=== PATIENT | female | born 1970 | race Caucasian/White ===

== ENCOUNTER 2016-10-17 22:51 | Inpatient (IN) | payer MEDICAID, OTHER ==
[2016-10-17] MEDS ORDERED: Sodium Chloride 0.9% 1,000 ML IV ONE (23:26)
--- NOTE | 2016-10-17 23:26 | C.PDOC ---
History Of Present Illness Patient presents with right upper quadrant pain which started around 8 pm. NO fever, chills, nausea or vomiting. Sharp, cramping pain. Tolerating PO. Time Seen by Provider: 10/17/16 23:26 Chief Complaint (Nursing): Abdominal Pain History Per: Patient History/Exam Limitations: no limitations Onset/Duration Of Symptoms: Hrs Current Symptoms Are (Timing): Still Present Context: Other Severity: Moderate Pain Scale Rating Of: 4 Location Of Pain/Discomfort: RUQ Radiation Of Pain To:: None Quality Of Discomfort: Sharp, Cramping, Stabbing Associated Symptoms: denies: Fever, Chills, Nausea, Vomiting Exacerbating Factors: None Alleviating Factors: None Last Bowel Movement: Today Recent travel outside of the [place]: No Additional History Per: Patient Abnormal Vaginal Bleeding: No Past Medical History Reviewed: Historical Data, Nursing Documentation, Vital Signs Vital Signs: Last Vital Signs Temp 98.4 F 10/17/16 23:03 Pulse 70 10/17/16 23:03 Resp 16 10/17/16 23:03 BP 108/66 10/17/16 23:03 Pulse Ox 100 10/18/16 02:02 - Medical History PMH: Hypercholesterolemia Family History: States: No Known Family Hx - Social History Hx Alcohol Use: No Hx Substance Use: No - Immunization History Hx Tetanus Toxoid Vaccination: No Hx Influenza Vaccination: No Hx Pneumococcal Vaccination: No Review Of Systems Constitutional: Negative for: Fever, Chills Eyes: Negative for: Redness ENT: Negative for: Throat Pain Cardiovascular: Negative for: Chest Pain Respiratory: Negative for: Shortness of Breath Gastrointestinal: Positive for: Abdominal Pain. Negative for: Nausea, Vomiting Genitourinary: Negative for: Dysuria Musculoskeletal: Negative for: Back Pain Skin: Negative for: Rash Neurological: Negative for: Weakness Psych: Negative for: Anxiety Physical Exam - Physical Exam Appears: Non-toxic, No Acute Distress Skin: Warm, Dry Head: Normacephalic Eye(s): bilateral: Normal Inspection Oral Mucosa: Moist Neck: Trachea Midline, Supple Chest: Symmetrical Cardiovascular: Rhythm Regular Respiratory: No Rales, No Rhonchi, No Wheezing Gastrointestinal/Abdominal: Soft, Tenderness (ruq), No Distention Back: No CVA Tenderness Extremity: No Tenderness Extremity: Bilateral: Atraumatic, Normal Color And Temperature, Normal ROM Pulses: Left Dorsalis Pedis: Normal, Right Dorsalis Pedis: Normal Neurological/Psych: Oriented x3, Normal Speech, Normal Cognition Gait: Steady ED Course And Treatment - Laboratory Results Result Diagrams: 10/17/16 23:31 10/17/16 23:31 O2 Sat by Pulse Oximetry: 100 Pulse Ox Interpretation: Normal Disposition Discussed With DrAnnie: Debi Dozier Comment: accepted the pt on his service and took over the care at 2 AM Doctor Will See Patient In The: Hospital Counseled Patient/Family Regarding: Studies Performed, Diagnosis - Disposition Disposition: HOSPITALIZED Disposition Time: 23:26 Condition: FAIR Forms: [employer] (Thai) - POA Present On Arrival: None - Clinical Impression Clinical Impression: Abdominal pain, Anemia Decision To Admit - Pt Status Changed To: Hospital Disposition Of: Inpatient - Admit Certification Admit to Inpatient:: After my assessment, the patient will require hospitalization for at least two midnights. This is because of the severity of symptoms shown, intensity of services needed, and/or the medical risk in this patient being treated as an outpatient. - InPatient: Physician Admission Certification:: After my assessment, the patient will require hospitalization for at least two midnights. This is because of the severity of symptoms shown, intensity of services needed, and/or the medical risk in this patient being treated as an outpatient. - . Bed Request Type: Regular Admitting Physician: Debi Dozier Patient Diagnosis: Abdominal pain, Anemia
[2016-10-17] MEDS ORDERED: Sodium Chloride 0.9% 1,000 ML ONE (23:33)
[2016-10-17 23:36] LABS: BASO # 0.1 K/uL (0.0-0.2); BASO % 0.4 % (0.0-2.0); EOS # 0.2 K/uL (0.0-0.7); EOS % 1.4 % (0.0-4.0); HEMATOCRIT 25.4 % (34.0-47.0); LYMPH # 2.2 K/uL (1.0-4.3); LYMPH % 16.5 % (20.0-40.0); MEAN CORPUSCULAR HEMOGLOBIN 19.2 pg (27.0-31.0); MEAN CORPUSCULAR HGB CONC 30.1 g/dL (33.0-37.0); MEAN PLATELET VOLUME 8.6 fL (7.2-11.7); MONO # 0.7 K/uL (0.0-0.8); MONO % 5.4 % (0.0-10.0); RED CELL DISTRIBUTION WIDTH 19.6 % (11.5-14.5); WHITE BLOOD COUNT 13.4 K/uL (4.8-10.8)
[2016-10-17 23:37] LABS: RBC URINE 2 /hpf (0-3); URINE BILIRUBIN NEGATIVE (NEGATIVE); URINE BLOOD NEGATIVE (NEGATIVE); URINE COLOR Yellow (YELLOW); URINE GLUCOSE (UA) NORMAL (Normal); URINE KETONE NEGATIVE (NEGATIVE); URINE LEUKOCYTE ESTERASE NEG Leu/uL (Negative); URINE PROTEIN NEGATIVE (NEGATIVE); URINE UROBILINOGEN NORMAL mg/dL (0.2-1.0); WBC URINE 2 /hpf (0-5)
[2016-10-17 23:44] LABS: CHLORIDE 100 mmol/L (98-107)
[2016-10-17 23:45] LABS: INR 1.1; POTASSIUM 3.9 mmol/L (3.6-5.2); SODIUM 135 mmol/L (132-148)
[2016-10-17 23:47] LABS: ALB/GLOB RATIO 1.1 (1.0-2.1); ALKALINE PHOSPHATASE 75 U/L (38-126); AST/SGOT 29 U/L (14-36); BILIRUBIN,TOTAL 0.3 mg/dL (0.2-1.3); BLOOD UREA NITROGEN 13 mg/dL (7-17); CARBON DIOXIDE 24 mmol/L (22-30); GFR AFRICAN-AMERICAN > 60; TOTAL PROTEIN 7.2 g/dL (6.3-8.3)
[2016-10-17 23:48] LABS: ALT/SGPT 24 U/L (9-52); CALCIUM 8.5 mg/dl (8.6-10.4); GLUCOSE,RANDOM 97 mg/dL (65-105)
[2016-10-18] MEDS ORDERED: Iodixanol 320 MG/ML 100 ML BOTTLE IV ONE (00:59)
[2016-10-18 01:12] LABS: MEAN CELL VOLUME 63.8 fL (81.0-99.0)
[2016-10-18] MEDS ORDERED: Sodium Chloride 0.9% 1,000 ML IV ONE (02:08)
--- NOTE | 2016-10-18 08:56 | CT ---
PROCEDURE: CT Abdomen and Pelvis with contrast HISTORY: ruq pain, elevated lipase COMPARISON: None. TECHNIQUE: Contrast dose: 100 mL Visipaque 320 Radiation dose: Total exam DLP = 576.19 mGy-cm. This CT exam was performed using one or more of the following dose reduction techniques: Automated exposure control, adjustment of the mA and/or kV according to patient size, and/or use of iterative reconstruction technique. FINDINGS: LOWER THORAX: Unremarkable. LIVER: Unremarkable. No gross lesion or ductal dilatation. GALLBLADDER AND BILE DUCTS: No calcified gallstones. Minimal mural thickening, nonspecific. Consider correlation with ultrasound examination if there is clinical suspicion of cholecystitis. No pericholecystic fluid appreciated. PANCREAS: Unremarkable. No gross lesion or ductal dilatation. SPLEEN: Unremarkable. ADRENALS: Unremarkable. No mass. KIDNEYS AND URETERS: Unremarkable. No hydronephrosis. No solid mass. VASCULATURE: Unremarkable. No aortic aneurysm. BOWEL: Unremarkable. No obstruction. No gross mural thickening. APPENDIX: Normal appendix. PERITONEUM: Unremarkable. No free fluid. No free air. LYMPH NODES: Unremarkable. No enlarged lymph nodes. BLADDER: Unremarkable. REPRODUCTIVE: 2.0 cm mildly deformed peripherally enhancing right ovarian cyst consistent with rupture or involuting right ovarian cyst. No other adnexal masses. Unremarkable uterus. BONES: No acute fracture. OTHER FINDINGS: None. IMPRESSION: Probable ruptured or involuting right ovarian cyst, 2.0 cm. Mild thickening of gallbladder wall, nonspecific. No calcified gallstones focal gallstones were demonstrated on abdominal ultrasound examination of 09/30/2015. If there is clinical suspicion of cholecystitis consider further evaluation with ultrasound examination of the abdomen. Preliminary interpretation of this examination was reported by [employer] at 1:53 a.m. on 10/18/2016. There is concurrence of this report with the preliminary interpretation.
--- NOTE | 2016-10-18 09:21 | CP.PCM.PN ---
Subjective - Date & Time of Evaluation Date of Evaluation: 10/18/16 Time of Evaluation: 07:20 - Subjective Subjective: Medicine note- Dr. Dozier's service Patient was seen and examined at bedside. Patient reports that when she first came in, she had a lot of abdominal pain, however she has none at the moment. She denies any nausea, vomiting, fevers, chills. Last BM was yesterday. She denies any medical history and says she does not smoke, drink, or use illicit drugs. No events overnight, per nursing. Objective - Vital Signs/Intake and Output Vital Signs (last 24 hours): Temp Pulse Resp BP Pulse Ox 98.1 F 63 20 99/65 L 100 10/18/16 08:34 10/18/16 08:34 10/18/16 08:34 10/18/16 08:34 10/18/16 08:34 Intake and Output: 10/18/16 10/18/16 06:59 18:59 Intake Total 300 Balance 300 - Medications Medications: Current Medications Lactated Ringer's (Lactated Ringer's) 1,000 mls @ 250 mls/hr IV .Q4H CONI Pneumococcal Polyvalent Vaccine (Pneumovax 23 Vaccine) 0.5 ml IM .ONCE ONE Stop: 10/20/16 10:01 - Labs Labs: PT 11.8 SECONDS (9.7-12.2) 10/17/16 23:31 INR 1.1 10/17/16 23:31 APTT 27 SECONDS (21-34) 10/17/16 23:31 - Constitutional Appears: Non-toxic, No Acute Distress - Head Exam Head Exam: ATRAUMATIC, NORMAL INSPECTION, NORMOCEPHALIC - Eye Exam Pupil Exam: NORMAL ACCOMODATION - ENT Exam ENT Exam: Mucous Membranes Moist - Respiratory Exam Respiratory Exam: Clear to Ausculation Bilateral, NORMAL BREATHING PATTERN. absent: Prolonged Expiratory Phase, Rales, Rhonchi, Wheezes - Cardiovascular Exam Cardiovascular Exam: REGULAR RHYTHM, +S1, +S2 - GI/Abdominal Exam GI & Abdominal Exam: Soft, Normal Bowel Sounds. absent: Tenderness, Diminished Bowel Sounds, Hernia, Hypoactive Bowel Sounds - Extremities Exam Extremities Exam: Normal Capillary Refill - Neurological Exam Neurological Exam: Alert, Awake, Oriented x3 - Psychiatric Exam Psychiatric exam: Normal Affect, Normal Mood - Skin Skin Exam: Dry, Intact, Normal Color, Warm Assessment and Plan (1) Acute pancreatitis Assessment & Plan: Lipase on admission-6764 WBC 6.6 Consult GI- Dr. Montalvo Consult Gen Surgery- Dr. Arvizu CT Scan w IV contrast- 10/18/16- Probable ruptured or involuting right ovarian cyst, 2.0 cm. Mild thickening of gall bladder wall, nonspecific. No calcified gallstones focal gallstones were demonstrated on abdominal ultrasound examination of 09/30/15. (Please see full report) Lactated Ringers @ 250cc/hr Abdomen Ultrasound- Cholelithiasis. Mild gallbladder wall thickening/ pericholecystic edema. Echogenic liver seen in setting of hepatic parnechymal disease or fatty infiltration. 9mm nonspecific focus within the right hepatic lobe. Advance diet as tolerated- currently on clear liquid diet Status: Acute (2) Anemia Assessment & Plan: Hgb 7.7 on admission Hgb 8.6 today Consult Hemeonc- Dr. Posadas f/u iron studies Status: Acute (3) Prophylactic measure Assessment & Plan: Protonix 40mg IVP Daily SCDs Status: Acute
[2016-10-18] MEDS: Lactated Ringer's 1,000 ML IV SCH ×5 (09:30→22:00)
--- NOTE | 2016-10-18 09:44 | CP.PCM.CON ---
<Reji Kim - Last Filed: 10/18/16 09:46> History of Present Illness - History of Present Illness History of Present Illness: PGY5 GI Fellow Consult Note Patient is a 45yo female with PMHx significant for pancreatitis who presented to the ED with one day of abdominal pain. The patient states that last night at 8pm, following dinner, she developed RUQ abdominal pain radiating ot the right flank and epigastrium. Pain was cramping in nature and as it continued to increase in severity, she came to the ED for evaluation. Symptoms have since resolved. Admits pain was similar to episode she had one year prior when she was diagnosed with acute pancreatitis, unknown etiology at that time. She denies any EtOH abuse/use and has no known history of gallstones or dyslipidemia /hypertriglyceridemia. She is not taking any new medications and denies any OTC medication use recently. Initial work up in the ED revealed a significantly elevated Lipase at 6700 and microcytic anemia. Denies fever, chills, nausea, vomiting, weight loss, dysphagia, hematochezia, melena. PMHx: Pancreatitis PSHx: Denies FHx: Discussed with patient and denies any significant family history Social: Denies tobacco, EtOH or illicit drug use Endo: No prior endoscopic evaluations 12 system ROS performed and negative except where stated above. Past Patient History - Infectious Disease Hx of Infectious Diseases: None - Past Medical History & Family History Past Medical History?: No - Past Social History Smoking Status: Never Smoked - CARDIAC Hx Hypercholesterolemia: Yes - MUSCULOSKELETAL/RHEUMATOLOGICAL Hx Falls: No - GASTROINTESTINAL Hx Gastritis: Yes - PSYCHIATRIC Hx Substance Use: No - SURGICAL HISTORY Hx Surgeries: No - ANESTHESIA Hx Anesthesia: No Has any member of the family had a problem w/ anesthesia?: No Meds Allergies/Adverse Reactions: Allergies Allergy/AdvReac Type Severity Reaction Status Date / Time Penicillins Allergy Severe hives Verified 10/17/16 23:07 - Medications Medications: Current Medications Lactated Ringer's (Lactated Ringer's) 1,000 mls @ 250 mls/hr IV .Q4H [facility]I Pneumococcal Polyvalent Vaccine (Pneumovax 23 Vaccine) 0.5 ml IM .ONCE ONE Stop: 10/20/16 10:01 Physical Exam - Constitutional Appears: Non-toxic, No Acute Distress - Eye Exam Eye Exam: EOMI, PERRL - ENT Exam ENT Exam: Mucous Membranes Moist - Respiratory Exam Respiratory Exam: Clear to Auscultation Bilateral. absent: Rales, Rhonchi, Wheezes - Cardiovascular Exam Cardiovascular Exam: RRR, +S1, +S2 - GI/Abdominal Exam GI & Abdominal Exam: Normal Bowel Sounds, Soft. absent: Distended, Firm, Guarding, Organomegaly, Rigid, Tenderness - Extremities Exam Extremities exam: Positive for: normal inspection. Negative for: pedal edema - Neurological Exam Neurological exam: Alert, Oriented x3 - Psychiatric Exam Psychiatric exam: Normal Affect, Normal Mood - Skin Skin Exam: Dry, Warm Results - Vital Signs Recent Vital Signs: Last Vital Signs Temp 98.1 F 10/18/16 08:34 Pulse 63 10/18/16 08:34 Resp 20 10/18/16 08:34 BP 99/65 L 10/18/16 08:34 Pulse Ox 100 10/18/16 08:34 - Labs Result Diagrams: 10/17/16 23:31 10/17/16 23:31 Assessment & Plan - Assessment and Plan (Free Text) Assessment: Patient is a 45yo female with PMHx significant for pancreatitis who presented to the ED with one day of abdominal pain -Acute pancreatitis (second episode), unclear etiology -Microcytic anemia Plan: -Recommend changing IVF to LR@250cc/hr for 24H -Advance diet to liquids, continue to advance diet as tolerated -Check abdominal U/S, r/o cholelithiasis -CT A/P reviewed -Check lipid panel, r/o hypertriglyceridemia -Iron studies pending, no overt blood loss per pt -Will benefit from outpatient w/u including EGD/Colonoscopy/EUS -May benefit from MRCP to r/o pancreas divisum -Will follow - Date & Time Date: 10/18/16 Time: 08:00 <Chandu Hollis - Last Filed: 10/18/16 10:34> Meds - Medications Medications: Current Medications Enoxaparin Sodium (Lovenox) 40 mg SC DAILY [facility] Lactated Ringer's (Lactated Ringer's) 1,000 mls @ 250 mls/hr IV .Q4H [facility] Sodium Chloride (Sodium Chloride 0.9%) 1,000 mls @ 100 mls/hr IV .Q10H [facility] Pantoprazole Sodium (Protonix Inj) 40 mg IVP [facility]ILY [facility] Pneumococcal Polyvalent Vaccine (Pneumovax 23 Vaccine) 0.5 ml IM .ONCE ONE Stop: 10/20/16 10:01 Results - Vital Signs Recent Vital Signs: Last Vital Signs Temp 98.1 F 10/18/16 08:34 Pulse 63 10/18/16 08:34 Resp 20 10/18/16 08:34 BP 99/65 L 10/18/16 08:34 Pulse Ox 100 10/18/16 08:34 - Labs Result Diagrams: 10/17/16 23:31 10/17/16 23:31 Attending/Attestation - Attestation I have personally seen and examined this patient.: Yes I have fully participated in the care of the patient.: Yes I have reviewed all pertinent clinical information: Yes Notes (Text): 10/18/16 10:31 45 year old female with h/o prior pancreatitis about 1 year ago now admitted with recurrent acute pancreatitis, uncertain etiology, also with microcytic anemia. 1. Acute pancreatitis 2. Microcytic anemia Plan: -CT reviewed, no local complications, no organ failure on labs -recommend aggressive IV hydration as above -eval for etiology with abdominal US, high trig, AIP -eval for anemia with iron studies -recommend outpatient egd/colon as well -consider outpatient EUS and/or MRCP as well for eval of recurrent idiopathic acute pancreatitis
[2016-10-18] MEDS ORDERED: Sodium Chloride 0.9% 1,000 ML IV SCH (10:15)
--- NOTE | 2016-10-18 11:11 | US ---
HISTORY: r/o gallstones COMPARISON: CT abdomen and pelvis with IV contrast performed 10/18/16, limited abdominal ultrasound performed 09/30/15. TECHNIQUE: Sonographic evaluation of the abdomen. FINDINGS: LIVER: Measures 16.0 cm in sagittal dimension. Echogenic liver may be seen in setting of hepatic parenchymal disease or fatty infiltration. 9 mm nonspecific echogenic focus within the right hepatic lobe. No focal hepatic mass identified. The main portal vein appears patent with normal directional flow. No intrahepatic bile duct dilatation. GALLBLADDER: Cholelithiasis. Bladder wall thickening/ edema measuring up to 4 mm. Negative sonographic Pedroza's sign as assessed by the wood last maker. COMMON BILE DUCT: Measures 5 mm. PANCREAS: Not well visualized. RIGHT KIDNEY: Measures 10.9 x 4.4 x 5.0cm. No obstructing calculus or hydronephrosis identified. LEFT KIDNEY: Measures 11.9 x 5.8 x 5.9cm. No obstructing calculus or hydronephrosis identified. SPLEEN: Not visualized. AORTA: Limited views appear unremarkable. IVC: Limited views appear unremarkable. OTHER FINDINGS: None. IMPRESSION: Cholelithiasis. Mild gallbladder wall thickening/pericholecystic edema. Negative sonographic Pedroza's sign as assessed by the wood last maker. Correlate clinically. Echogenic liver may be seen in setting of hepatic parenchymal disease or fatty infiltration. 9 mm nonspecific focus within the right hepatic lobe.
[2016-10-18 11:51] LABS: BASO % 0.4 % (0.0-2.0); EOS # 0.1 K/uL (0.0-0.7); EOS % 1.5 % (0.0-4.0); HEMATOCRIT 28.5 % (34.0-47.0); LYMPH # 2.2 K/uL (1.0-4.3); LYMPH % 33.4 % (20.0-40.0); MEAN CELL VOLUME 63.9 fL (81.0-99.0); MEAN CORPUSCULAR HEMOGLOBIN 19.3 pg (27.0-31.0); MEAN CORPUSCULAR HGB CONC 30.1 g/dL (33.0-37.0); MEAN PLATELET VOLUME 8.3 fL (7.2-11.7); MONO # 0.3 K/uL (0.0-0.8); MONO % 5.3 % (0.0-10.0); RED CELL DISTRIBUTION WIDTH 19.4 % (11.5-14.5)
[2016-10-18 11:54] LABS: CHLORIDE 106 mmol/L (98-107)
[2016-10-18 11:55] LABS: POTASSIUM 3.5 mmol/L (3.6-5.2); SODIUM 138 mmol/L (132-148)
[2016-10-18 11:56] LABS: WHITE BLOOD COUNT 6.6 K/uL (4.8-10.8)
[2016-10-18 11:57] LABS: CARBON DIOXIDE 22 mmol/L (22-30); CHOLESTEROL 171 mg/dL (0-199); GFR AFRICAN-AMERICAN > 60
[2016-10-18 11:58] LABS: ALB/GLOB RATIO 1.1 (1.0-2.1); ALKALINE PHOSPHATASE 85 U/L (38-126); ALT/SGPT 26 U/L (9-52); AST/SGOT 25 U/L (14-36); BILIRUBIN,TOTAL 0.7 mg/dL (0.2-1.3); BLOOD UREA NITROGEN 5 mg/dL (7-17); CALCIUM 8.9 mg/dl (8.6-10.4); GLUCOSE,RANDOM 90 mg/dL (65-105); TOTAL PROTEIN 7.6 g/dL (6.3-8.3)
--- NOTE | 2016-10-18 13:30 | CP.PCM.HP ---
Past Patient History - Infectious Disease Hx of Infectious Diseases: None - Past Medical History & Family History Past Medical History?: No - Past Social History Smoking Status: Never Smoked - CARDIAC Hx Hypercholesterolemia: Yes - MUSCULOSKELETAL/RHEUMATOLOGICAL Hx Falls: No - GASTROINTESTINAL Hx Gastritis: Yes - PSYCHIATRIC Hx Substance Use: No - SURGICAL HISTORY Hx Surgeries: No - ANESTHESIA Hx Anesthesia: No Has any member of the family had a problem w/ anesthesia?: No Meds Allergies/Adverse Reactions: Allergies Allergy/AdvReac Type Severity Reaction Status Date / Time Penicillins Allergy Severe hives Verified 10/17/16 23:07 Physical Exam - Constitutional Appears: Well - Head Exam Head Exam: ATRAUMATIC, NORMAL INSPECTION, NORMOCEPHALIC - Eye Exam Eye Exam: EOMI, Normal appearance, PERRL Pupil Exam: NORMAL ACCOMODATION, PERRL - ENT Exam ENT Exam: Mucous Membranes Moist, Normal Exam - Neck Exam Neck exam: Positive for: Normal Inspection - Respiratory Exam Respiratory Exam: Decreased Breath Sounds - Cardiovascular Exam Cardiovascular Exam: REGULAR RHYTHM, +S1, +S2 - GI/Abdominal Exam GI & Abdominal Exam: Diminished Bowel Sounds, Soft - Rectal Exam Rectal Exam: Deferred Results - Vital Signs Recent Vital Signs: Last Vital Signs Temp 98.1 F 10/18/16 08:34 Pulse 63 10/18/16 08:34 Resp 20 10/18/16 08:34 BP 99/65 L 10/18/16 08:34 Pulse Ox 100 10/18/16 08:34 - Labs Result Diagrams: 10/18/16 11:41 10/18/16 11:41 Labs: Laboratory Results - last 24 hr 10/18/16 10/18/16 11:41 11:41 WBC 6.6 D RBC 4.46 Hgb 8.6 L Hct 28.5 L MCV 63.9 L MCH 19.3 L MCHC 30.1 L RDW 19.4 H Plt Count 321 MPV 8.3 Neut % (Auto) 59.4 Lymph % (Auto) 33.4 [place] % (Auto) 5.3 Eos % (Auto) 1.5 Baso % (Auto) 0.4 Neut # 3.9 Lymph # 2.2 [place] # 0.3 Eos # 0.1 Baso # 0.0 Sodium 138 Potassium 3.5 L Chloride 106 Carbon Dioxide 22 Anion Gap 13 BUN 5 L Creatinine 0.4 L Est GFR ( Amer) > 60 Est GFR (Non-Af Amer) > 60 Random Glucose 90 Calcium 8.9 Total Bilirubin 0.7 AST 25 ALT 26 Alkaline Phosphatase 85 Total Protein 7.6 Albumin 4.0 Globulin 3.6 Albumin/Globulin Ratio 1.1 Triglycerides 96 Cholesterol 171 LDL Cholesterol Direct 85 HDL Cholesterol 68
--- NOTE | 2016-10-18 13:46 | CP.PCM.CON ---
<Clyde Kuhn - Last Filed: 10/18/16 14:17> History of Present Illness - History of Present Illness History of Present Illness: General Surgery- Dr. Arvizu 45F pmhx for pancreatitis first episode one year ago. Pt presented to the ED with pain in the RUQ started one day ago and got progressively worse. During this visit, pt was diagnosed with pancreatitits. During encounter, currently denies any pain. Ultrasound shows gallbladder wall thickening and cholelithiasis. Pt denies current F/C N/V/D BRBPR PMH: Pancreatitis (one year ago) PSH: none SocialHx: Denies tobacco, etoh, illicit drug use Review of Systems - Review of Systems All systems: reviewed and no additional remarkable complaints except Past Patient History - Infectious Disease Hx of Infectious Diseases: None - Past Medical History & Family History Past Medical History?: No - Past Social History Smoking Status: Never Smoked - CARDIAC Hx Hypercholesterolemia: Yes - MUSCULOSKELETAL/RHEUMATOLOGICAL Hx Falls: No - GASTROINTESTINAL Hx Gastritis: Yes - PSYCHIATRIC Hx Substance Use: No - SURGICAL HISTORY Hx Surgeries: No - ANESTHESIA Hx Anesthesia: No Has any member of the family had a problem w/ anesthesia?: No Meds Allergies/Adverse Reactions: Allergies Allergy/AdvReac Type Severity Reaction Status Date / Time Penicillins Allergy Severe hives Verified 10/17/16 23:07 - Medications Medications: Current Medications Enoxaparin Sodium (Lovenox) 40 mg SC DAILY [facility] Lactated Ringer's (Lactated Ringer's) 1,000 mls @ 250 mls/hr IV .Q4H [facility] Last Admin: 10/18/16 13:22 Dose: 250 mls/hr Pantoprazole Sodium (Protonix Inj) 40 mg IVP DAILY [facility] Pneumococcal Polyvalent Vaccine (Pneumovax 23 Vaccine) 0.5 ml IM .ONCE ONE Stop: 10/20/16 10:01 Physical Exam - Constitutional Appears: Non-toxic, No Acute Distress - Head Exam Head Exam: ATRAUMATIC - ENT Exam ENT Exam: Mucous Membranes Moist - Respiratory Exam Respiratory Exam: NORMAL BREATHING PATTERN. absent: Accessory Muscle Use, Rhonchi, Wheezes - Cardiovascular Exam Cardiovascular Exam: +S1, +S2 - GI/Abdominal Exam GI & Abdominal Exam: Soft. absent: Bruit, Distended, Mass, Rigid, Tenderness - Neurological Exam Neurological exam: Alert, Oriented x3 - Psychiatric Exam Psychiatric exam: Normal Affect - Skin Skin Exam: Normal Color, Warm Results - Vital Signs Recent Vital Signs: Last Vital Signs Temp 98.1 F 10/18/16 08:34 Pulse 63 10/18/16 08:34 Resp 20 10/18/16 08:34 BP 99/65 L 10/18/16 08:34 Pulse Ox 100 10/18/16 08:34 - Labs Result Diagrams: 10/18/16 11:41 10/18/16 11:41 Labs: Laboratory Results - last 24 hr 10/18/16 10/18/16 11:41 11:41 WBC 6.6 D RBC 4.46 Hgb 8.6 L Hct 28.5 L MCV 63.9 L MCH 19.3 L MCHC 30.1 L RDW 19.4 H Plt Count 321 MPV 8.3 Neut % (Auto) 59.4 Lymph % (Auto) 33.4 Love % (Auto) 5.3 Eos % (Auto) 1.5 Baso % (Auto) 0.4 Neut # 3.9 Lymph # 2.2 Love # 0.3 Eos # 0.1 Baso # 0.0 Sodium 138 Potassium 3.5 L Chloride 106 Carbon Dioxide 22 Anion Gap 13 BUN 5 L Creatinine 0.4 L Est GFR ( Amer) > 60 Est GFR (Non-Af Amer) > 60 Random Glucose 90 Calcium 8.9 Total Bilirubin 0.7 AST 25 ALT 26 Alkaline Phosphatase 85 Total Protein 7.6 Albumin 4.0 Globulin 3.6 Albumin/Globulin Ratio 1.1 Triglycerides 96 Cholesterol 171 LDL Cholesterol Direct 85 HDL Cholesterol 68 Assessment & Plan - Assessment and Plan (Free Text) Assessment: 45F w/ Gallstone Pancreatitis Plan: - will plan for surgical intervention during this visit or as follow up. - c/w medical management - pain control - IVF - further recs per Dr. Nolberto Kuhn PGY1 <Binu Arvizu - Last Filed: 10/23/16 16:53> Results - Vital Signs Recent Vital Signs: Last Vital Signs Temp 97.2 F L 10/20/16 07:00 Pulse 62 10/20/16 07:00 Resp 20 10/20/16 07:00 BP 110/69 10/20/16 07:00 Pulse Ox 98 10/20/16 07:00 - Labs Result Diagrams: 10/19/16 15:03 10/19/16 15:03 Labs: Laboratory Results - last 24 hr 10/18/16 19:59 IgG, Serum (MS) 14.1 Attending/Attestation - Attestation I have personally seen and examined this patient.: Yes I have fully participated in the care of the patient.: Yes I have reviewed all pertinent clinical information: Yes Notes (Text): 10/23/16 16:51 Pt was seen and examined at bedside on 10/18/16 Agree with above note and assessment Pt with GS pancreatitis with Anemia Repeat Lipase/amylase and LFTS IV antibiotic NPO,IVF Medical clearance. Plan d.w pt in detail Risk and benefit explained in detail.
--- NOTE | 2016-10-18 14:15 | CP.PCM.PN ---
Objective - Vital Signs/Intake and Output Vital Signs (last 24 hours): Temp Pulse Resp BP Pulse Ox 98.1 F 63 20 99/65 L 100 10/18/16 08:34 10/18/16 08:34 10/18/16 08:34 10/18/16 08:34 10/18/16 08:34 Intake and Output: 10/18/16 10/18/16 06:59 18:59 Intake Total 300 Balance 300 - Medications Medications: Current Medications Enoxaparin Sodium (Lovenox) 40 mg SC DAILY [facility] Lactated Ringer's (Lactated Ringer's) 1,000 mls @ 250 mls/hr IV .Q4H CONI Last Admin: 10/18/16 13:22 Dose: 250 mls/hr Pantoprazole Sodium (Protonix Inj) 40 mg IVP DAILY [facility] Pneumococcal Polyvalent Vaccine (Pneumovax 23 Vaccine) 0.5 ml IM .ONCE ONE Stop: 10/20/16 10:01 - Labs Labs: 10/18/16 11:41 10/18/16 11:41 PT 11.8 SECONDS (9.7-12.2) 10/17/16 23:31 INR 1.1 10/17/16 23:31 APTT 27 SECONDS (21-34) 10/17/16 23:31 Assessment and Plan (1) Acute pancreatitis Status: Acute (2) Anemia Status: Acute (3) Prophylactic measure Status: Acute
[2016-10-18] MEDS ORDERED: Potassium Chloride 20 mEq ER Tab PO ONE ×2 (14:24→19:45)
--- NOTE | 2016-10-18 15:23 | CP.PCM.HP ---
<Valentin Gonzalez - Last Filed: 10/18/16 15:20> History of Present Illness - History of Present Illness History of Present Illness: cc: "abdominal pain" HPI: Patient is a 45 year old female with PMHx of hyperlipidemia, hx of pancreatitis, anemia presenting to the ED complaining of abdominal pain that started yesterday morning, localized to the right upper quadrant, described as a sharp pain. She said the pain worsened after eating, but not during. She says she has had this once before, per records she was at [facility] for pancreatitis in September of 2015. She denied fevers, chills, chest pain, palpitations, nausea, vomiting. Patient reports that in the past, she has been told that she was anemic, but she does not know why. She reports she has had tranfusions in the past. She denies any heavy menstrual periods, no rectal bleeding, hematuria. Denies any previous colonoscopy. PMHx: As stated above PSHx: None Allergies: PCN Fam hx: Denies cardiac, stroke, malignancy history Social hx: Denies smoking, alcohol, drug history. Present on Admission - Present on Admission Any Indicators Present on Admission: No Review of Systems - Constitutional Constitutional: absent: Chills, Weight Loss, Weakness - EENT Eyes: absent: Blurred Vision, Change in Vision - Cardiovascular Cardiovascular: absent: Chest Pain, Irregular Heart Rhythm, Leg Edema, Pedal Edema - Respiratory Respiratory: absent: Cough, Dyspnea, Dyspnea on Exertion, Wheezing - Gastrointestinal Gastrointestinal: Abdominal Pain. absent: Constipation, Diarrhea, Nausea, Vomiting - Menstruation Menstruation: absent: Amenorrhea, Abnormal Vaginal Bleeding - Musculoskeletal Musculoskeletal: absent: Back Pain, Myalgias, Numbness - Integumentary Integumentary: absent: Skin Ulcer, Sores, Wounds - Neurological Neurological: absent: Abnormal Movements, Tremor, Weakness - Psychiatric Psychiatric: absent: Anxiety, Panic Attacks, Suicidal Ideation - Endocrine Endocrine: absent: Fatigue, Palpitations Past Patient History - Infectious Disease Hx of Infectious Diseases: None - Past Medical History & Family History Past Medical History?: No - Past Social History Smoking Status: Never Smoked Chewing Tobacco Use: No Cigar Use: No Alcohol: None Drugs: Denies - CARDIAC Hx Hypercholesterolemia: Yes - MUSCULOSKELETAL/RHEUMATOLOGICAL Hx Falls: No - GASTROINTESTINAL Hx Gastritis: Yes - PSYCHIATRIC Hx Substance Use: No - SURGICAL HISTORY Hx Surgeries: No - ANESTHESIA Hx Anesthesia: No Has any member of the family had a problem w/ anesthesia?: No Meds Allergies/Adverse Reactions: Allergies Allergy/AdvReac Type Severity Reaction Status Date / Time Penicillins Allergy Severe hives Verified 10/17/16 23:07 Physical Exam - Constitutional Appears: Non-toxic, No Acute Distress - Head Exam Head Exam: ATRAUMATIC, NORMAL INSPECTION, NORMOCEPHALIC - Eye Exam Pupil Exam: NORMAL ACCOMODATION, PERRL - ENT Exam ENT Exam: Mucous Membranes Moist - Neck Exam Neck exam: Positive for: Normal Inspection - Respiratory Exam Respiratory Exam: Clear to Auscultation Bilateral - Cardiovascular Exam Cardiovascular Exam: REGULAR RHYTHM, +S1, +S2 - GI/Abdominal Exam GI & Abdominal Exam: Normal Bowel Sounds, Soft, Tenderness (RUQ). absent: Firm , Guarding, Rebound, Rigid - Extremities Exam Extremities exam: Positive for: normal capillary refill - Neurological Exam Neurological exam: Alert, CN II-XII Intact, Oriented x3 - Psychiatric Exam Psychiatric exam: Normal Affect, Normal Mood - Skin Skin Exam: Dry, Intact, Normal Color, Warm Results - Vital Signs Recent Vital Signs: Last Vital Signs Temp 98.1 F 10/18/16 08:34 Pulse 63 10/18/16 08:34 Resp 20 10/18/16 08:34 BP 99/65 L 10/18/16 08:34 Pulse Ox 100 10/18/16 08:34 - Labs Result Diagrams: 10/18/16 11:41 10/18/16 11:41 Labs: Laboratory Results - last 24 hr 10/18/16 10/18/16 11:41 11:41 WBC 6.6 D RBC 4.46 Hgb 8.6 L Hct 28.5 L MCV 63.9 L MCH 19.3 L MCHC 30.1 L RDW 19.4 H Plt Count 321 MPV 8.3 Neut % (Auto) 59.4 Lymph % (Auto) 33.4 Callahan % (Auto) 5.3 Eos % (Auto) 1.5 Baso % (Auto) 0.4 Neut # 3.9 Lymph # 2.2 Callahan # 0.3 Eos # 0.1 Baso # 0.0 Sodium 138 Potassium 3.5 L Chloride 106 Carbon Dioxide 22 Anion Gap 13 BUN 5 L Creatinine 0.4 L Est GFR ( Amer) > 60 Est GFR (Non-Af Amer) > 60 Random Glucose 90 Calcium 8.9 Total Bilirubin 0.7 AST 25 ALT 26 Alkaline Phosphatase 85 Total Protein 7.6 Albumin 4.0 Globulin 3.6 Albumin/Globulin Ratio 1.1 Triglycerides 96 Cholesterol 171 LDL Cholesterol Direct 85 HDL Cholesterol 68 Assessment & Plan (1) Acute pancreatitis Status: Acute (2) Anemia Status: Acute (3) Prophylactic measure Status: Acute - Assessment and Plan (Free Text) Assessment: (1) Acute pancreatitis Assessment & Plan: Lipase on admission-[id number] WBC 6.6 Consult GI- Dr. Montalvo Consult Gen Surgery- Dr. Arvizu- Per Dr. Arvizu, if patient's lipase continues to trend down and patient remains stable, patient may be taken for cholecystectomy on Tuesday10/20/16 CT Scan w IV contrast- 10/18/16- Probable ruptured or involuting right ovarian cyst, 2.0 cm. Mild thickening of gall bladder wall, nonspecific. No calcified gallstones focal gallstones were demonstrated on abdominal ultrasound examination of 09/30/15. (Please see full report) Abdomen Ultrasound- 10/18/16- Cholelithiasis. Mild gallbladder wall thickening/ pericholecystic edema. Echogenic liver seen in setting of hepatic parnechymal disease or fatty infiltration. 9mm nonspecific focus within the right hepatic lobe. Had trial of clear liquid diet for Lunch, patient complained of abdominal pain. Made NPO except ice chips Lactated Ringers @ 250cc/hr Morphine 1mg IVP Q4h PRN for pain Status: Acute (2) Anemia Assessment & Plan: Hgb 7.7 on admission Hgb 8.6 today Consult Hemeonc- Dr. Posadas f/u iron studies Status: Acute (3) Prophylactic measure Assessment & Plan: Protonix 40mg IVP Daily SCDs Status: Acute <Kendell Braga - Last Filed: 11/22/16 15:23> Results - Vital Signs Recent Vital Signs: Last Vital Signs Temp 97.2 F L 10/20/16 07:00 Pulse 62 10/20/16 07:00 Resp 20 10/20/16 07:00 BP 110/69 10/20/16 07:00 Pulse Ox 98 10/20/16 07:00 - Labs Result Diagrams: 10/19/16 15:03 08/15/17 15:03 Attending/Attestation - Attestation I have personally seen and examined this patient.: Yes I have fully participated in the care of the patient.: Yes I have reviewed all pertinent clinical information: Yes Notes (Text): (1) Acute pancreatitis (2) Anemia
[2016-10-18] MEDS: Ferric Sodium Gluconat Complex 62.5 mg/5 ml Vial IVPB SCH (21:10)
[2016-10-19 01:55] VITALS: RESP 20
[2016-10-19] MEDS: Lactated Ringer's 1,000 ML IV SCH ×6 (03:00→23:50)
--- NOTE | 2016-10-19 07:37 | CP.PCM.PN ---
<SariflyReji taylor - Last Filed: 10/19/16 08:32> Subjective - Date & Time of Evaluation Date of Evaluation: 10/19/16 Time of Evaluation: 07:10 - Subjective Subjective: PGY5 GI Fellow Progress Note Patient seen and examined bedside this morning. The patient denies any complaints at this time. States that she is feeling much better and has no abdominal pain. Tolerating liquid diet without issue. 12 system ROS performed and negative except where stated. Objective - Vital Signs/Intake and Output Vital Signs (last 24 hours): Temp Pulse Resp BP Pulse Ox 97.6 F 64 20 110/58 L 100 10/18/16 23:45 10/18/16 23:45 10/18/16 23:45 10/18/16 23:45 10/18/16 23:45 Intake and Output: 10/19/16 10/19/16 06:59 18:59 Intake Total 4000 Balance 4000 - Medications Medications: Current Medications Enoxaparin Sodium (Lovenox) 40 mg SC DAILY [facility] Ferric Sodium Gluconate Complex (Ferrlecit) 125 mg IVPB DAILY [facility] Stop: 10/26/16 17:46 Last Admin: 10/18/16 21:10 Dose: 125 mg Lactated Ringer's (Lactated Ringer's) 1,000 mls @ 250 mls/hr IV .Q4H [facility] Last Admin: 10/19/16 03:00 Dose: 250 mls/hr Morphine Sulfate (Morphine) 1 mg IVP Q4 PRN PRN Reason: Pain, severe (8-10) Pantoprazole Sodium (Protonix Inj) 40 mg IVP DAILY [facility] Pneumococcal Polyvalent Vaccine (Pneumovax 23 Vaccine) 0.5 ml IM .ONCE ONE Stop: 10/20/16 10:01 - Labs Labs: 10/18/16 11:41 10/18/16 11:41 PT 11.8 SECONDS (9.7-12.2) 10/17/16 23:31 INR 1.1 10/17/16 23:31 APTT 27 SECONDS (21-34) 10/17/16 23:31 - Constitutional Appears: Non-toxic, No Acute Distress - Eye Exam Eye Exam: EOMI, PERRL - ENT Exam ENT Exam: Mucous Membranes Moist - Respiratory Exam Respiratory Exam: Clear to Ausculation Bilateral. absent: Rales, Rhonchi, Wheezes - Cardiovascular Exam Cardiovascular Exam: RRR, +S1, +S2 - GI/Abdominal Exam GI & Abdominal Exam: Soft, Normal Bowel Sounds. absent: Distended, Firm, Guarding, Rigid, Tenderness, Organomegaly - Extremities Exam Extremities Exam: Normal Inspection. absent: Pedal Edema - Neurological Exam Neurological Exam: Alert, Awake, Oriented x3 - Psychiatric Exam Psychiatric exam: Normal Affect, Normal Mood - Skin Skin Exam: Dry, Warm Assessment and Plan - Assessment and Plan (Free Text) Assessment: Patient is a 45yo female with PMHx significant for pancreatitis who presented to the ED with one day of abdominal pain -Acute pancreatitis (second episode), believe gallstone pancreatitis to be etiology -Microcytic anemia Plan: -U/S revealing cholelithiasis, mild wall thickening/pericholecystic edema -Plan for laparoscopic cholecystectomy tomorrow with surgical service -OK to advance diet as tolerated today; NPO past MN for surgery -OK to decrease IVF to LR@150 -Lipid panel unremarkable -IgG4 subclass sent -Iron studies ordered, still with no overt blood loss since admission; HGB stable -Recommend outpatient EGD/Colonoscopy <Roney Montalvo - Last Filed: 10/19/16 08:46> Objective - Vital Signs/Intake and Output Vital Signs (last 24 hours): Temp Pulse Resp BP Pulse Ox 98.5 F 70 20 110/70 99 10/19/16 07:00 10/19/16 07:00 10/19/16 07:00 10/19/16 07:00 10/19/16 07:00 Intake and Output: 10/19/16 10/19/16 06:59 18:59 Intake Total 4000 Balance 4000 - Medications Medications: Current Medications Enoxaparin Sodium (Lovenox) 40 mg SC DAILY [facility] Ferric Sodium Gluconate Complex (Ferrlecit) 125 mg IVPB DAILY [facility] Stop: 10/26/16 17:46 Last Admin: 10/18/16 21:10 Dose: 125 mg Lactated Ringer's (Lactated Ringer's) 1,000 mls @ 250 mls/hr IV .Q4H [facility] Last Admin: 10/19/16 03:00 Dose: 250 mls/hr Morphine Sulfate (Morphine) 1 mg IVP Q4 PRN PRN Reason: Pain, severe (8-10) Pantoprazole Sodium (Protonix Inj) 40 mg IVP DAILY [facility] Pneumococcal Polyvalent Vaccine (Pneumovax 23 Vaccine) 0.5 ml IM .ONCE ONE Stop: 10/20/16 10:01 - Labs Labs: 10/18/16 11:41 10/18/16 11:41 PT 11.8 SECONDS (9.7-12.2) 10/17/16 23:31 INR 1.1 10/17/16 23:31 APTT 27 SECONDS (21-34) 10/17/16 23:31 Attending/Attestation - Attestation I have personally seen and examined this patient.: Yes I have fully participated in the care of the patient.: Yes I have reviewed all pertinent clinical information, including history, physical exam and plan: Yes Notes (Text): 10/19/16 08:42 I have seen and examined patient with GI fellow. No acute events overnight, she is seen resting in bed comfortably. Her abdominal pain has resolved and she denies nausea, vomiting, fever/chills. Tolerating PO liquids without difficulty. Abdominal pain, chemical pancreatitis without radiographic pancreatic abnormalities Cholelithiasis Ruptured right ovarian cyst Microcytic anemia - Liquid diet as tolerated - Continue with supportive care, IVF hydration, anti-emetic therapy PRN - Patient planned for cholecystectomy by surgical team tomorrow - H/H stable, awaiting iron studies - Awaiting results of IGG4 panel given recurrent episode of pancreatitis, ? gallstone etiology - Suggest outpatient MRCP imaging and endoscopic evaluation of microcytic anemia. No further inpatient planned GI intervention, will sign off case. Further plan as per surgical team. Please reconsult as necessary, thank you.
[2016-10-19] MEDS: Ferric Sodium Gluconat Complex 62.5 mg/5 ml Vial IVPB SCH (09:20)
[2016-10-19] MEDS: Enoxaparin 40 mg Syringe SC SCH ×3 (09:21→09:31)
[2016-10-19 15:08] LABS: BASO % 0.4 % (0.0-2.0); EOS # 0.1 K/uL (0.0-0.7); EOS % 1.7 % (0.0-4.0); HEMATOCRIT 26.2 % (34.0-47.0); LYMPH # 1.7 K/uL (1.0-4.3); LYMPH % 27.3 % (20.0-40.0); MEAN CELL VOLUME 64.1 fL (81.0-99.0); MEAN CORPUSCULAR HEMOGLOBIN 19.3 pg (27.0-31.0); MEAN CORPUSCULAR HGB CONC 30.1 g/dL (33.0-37.0); MEAN PLATELET VOLUME 8.8 fL (7.2-11.7); MONO # 0.3 K/uL (0.0-0.8); MONO % 5.5 % (0.0-10.0); RED CELL DISTRIBUTION WIDTH 19.2 % (11.5-14.5); WHITE BLOOD COUNT 6.2 K/uL (4.8-10.8)
[2016-10-19 15:14] LABS: CHLORIDE 103 mmol/L (98-107); POTASSIUM 3.3 mmol/L (3.6-5.2); SODIUM 141 mmol/L (132-148)
[2016-10-19 15:16] LABS: GFR AFRICAN-AMERICAN > 60
[2016-10-19 15:17] LABS: ALB/GLOB RATIO 1.1 (1.0-2.1); ALKALINE PHOSPHATASE 69 U/L (38-126); ALT/SGPT 21 U/L (9-52); AST/SGOT 20 U/L (14-36); BILIRUBIN,TOTAL 0.4 mg/dL (0.2-1.3); BLOOD UREA NITROGEN 2 mg/dL (7-17); CALCIUM 9.1 mg/dl (8.6-10.4); CARBON DIOXIDE 24 mmol/L (22-30); GLUCOSE,RANDOM 133 mg/dL (65-105); TOTAL PROTEIN 6.8 g/dL (6.3-8.3)
--- NOTE | 2016-10-19 15:29 | CP.PCM.PN ---
<Guillaume Gilbert - Last Filed: 10/19/16 15:33> Subjective - Date & Time of Evaluation Date of Evaluation: 10/19/16 Time of Evaluation: 06:40 - Subjective Subjective: Patient seen and examined. No acute events over night. Patient reports she no longer has abdominal pain. Requesting liquids. Objective - Vital Signs/Intake and Output Vital Signs (last 24 hours): Temp Pulse Resp BP Pulse Ox 98.5 F 70 20 110/70 99 10/19/16 07:00 10/19/16 07:00 10/19/16 07:00 10/19/16 07:00 10/19/16 07:00 Intake and Output: 10/19/16 10/19/16 06:59 18:59 Intake Total 4000 2250 Balance 4000 2250 - Medications Medications: Current Medications Enoxaparin Sodium (Lovenox) 40 mg SC DAILY [facility] Last Admin: 10/19/16 09:31 Dose: 40 mg Ferric Sodium Gluconate Complex (Ferrlecit) 125 mg IVPB DAILY [facility] Stop: 10/26/16 17:46 Last Admin: 10/19/16 09:20 Dose: 125 mg Lactated Ringer's (Lactated Ringer's) 1,000 mls @ 250 mls/hr IV .Q4H COUNT [facility]CLUD[facility] Last Admin: 10/19/16 13:51 Dose: 250 mls/hr Morphine Sulfate (Morphine) 1 mg IVP Q4 PRN PRN Reason: Pain, severe (8-10) Pantoprazole Sodium (Protonix Inj) 40 mg IVP DAILY [facility] Last Admin: 10/19/16 09:29 Dose: 40 mg Pneumococcal Polyvalent Vaccine (Pneumovax 23 Vaccine) 0.5 ml IM .ONCE ONE Stop: 10/20/16 10:01 - Labs Labs: 10/19/16 15:03 10/19/16 15:03 PT 11.8 SECONDS (9.7-12.2) 10/17/16 23:31 INR 1.1 10/17/16 23:31 APTT 27 SECONDS (21-34) 10/17/16 23:31 - Constitutional Appears: No Acute Distress - Head Exam Head Exam: NORMOCEPHALIC - Eye Exam Eye Exam: Normal appearance - ENT Exam ENT Exam: Mucous Membranes Moist - Respiratory Exam Respiratory Exam: NORMAL BREATHING PATTERN - Cardiovascular Exam Cardiovascular Exam: +S1, +S2 - GI/Abdominal Exam GI & Abdominal Exam: Soft - Neurological Exam Neurological Exam: Alert, Awake, Oriented x3 - Psychiatric Exam Psychiatric exam: Normal Mood - Skin Skin Exam: Dry, Intact, Warm Assessment and Plan - Assessment and Plan (Free Text) Assessment: 45F w/ Gallstone Pancreatitis - Scheduled for OR tomorrow AM -Clear liquid diet -NPO after midnight -type&cross - c/w medical management as per primary - analgesics prn - further recs per Dr. Arvizu <Binu Arvizu - Last Filed: 10/23/16 16:59> Objective - Vital Signs/Intake and Output Vital Signs (last 24 hours): Temp Pulse Resp BP Pulse Ox 97.2 F L 62 20 110/69 98 10/20/16 07:00 10/20/16 07:00 10/20/16 07:00 10/20/16 07:00 10/20/16 07:00 - Labs Labs: 10/19/16 15:03 10/19/16 15:03 PT 11.8 SECONDS (9.7-12.2) 10/17/16 23:31 INR 1.1 10/17/16 23:31 APTT 27 SECONDS (21-34) 10/17/16 23:31 Attending/Attestation - Attestation I have personally seen and examined this patient.: Yes I have fully participated in the care of the patient.: Yes I have reviewed all pertinent clinical information, including history, physical exam and plan: Yes Notes (Text): 10/23/16 16:58 Pt was seen and examined at bedside Agree with above note and assessment Pt with GS pancreatitis with Anemia IV antibiotic Medical clearance for possible Cholecystectomy PRBC transfusion Plan d.w pt in detail Risk and benefit explained in detail.
--- NOTE | 2016-10-19 21:33 | CP.PCM.PN ---
<Ermias Sevilla - Last Filed: 10/19/16 21:35> Subjective - Date & Time of Evaluation Date of Evaluation: 10/19/16 Time of Evaluation: 21:22 - Subjective Subjective: PGY1 Note for Dr. Braga HPI: Patient seen and examined at bedside. Doing well with no complaints at this time. Was refusing blood work throughout the day. Denies CP, N/V/D/F/Chills , SOB. Patient wants to eat. Objective - Vital Signs/Intake and Output Vital Signs (last 24 hours): Temp Pulse Resp BP Pulse Ox 97.7 F 63 20 117/69 100 10/19/16 15:06 10/19/16 15:06 10/19/16 15:06 10/19/16 15:06 10/19/16 15:06 Intake and Output: 10/19/16 10/20/16 18:59 06:59 Intake Total 2250 Balance 2250 - Medications Medications: Current Medications Enoxaparin Sodium (Lovenox) 40 mg SC DAILY [facility] Last Admin: 10/19/16 09:31 Dose: 40 mg Ferric Sodium Gluconate Complex (Ferrlecit) 125 mg IVPB DAILY [facility] Stop: 10/26/16 17:46 Last Admin: 10/19/16 09:20 Dose: 125 mg Lactated Ringer's (Lactated Ringer's) 1,000 mls @ 150 mls/hr IV .Q6H40M [facility] Last Admin: 10/19/16 18:00 Dose: 150 mls/hr Morphine Sulfate (Morphine) 1 mg IVP Q4 PRN PRN Reason: Pain, severe (8-10) Pantoprazole Sodium (Protonix Inj) 40 mg IVP DAILY [facility] Last Admin: 10/19/16 09:29 Dose: 40 mg Pneumococcal Polyvalent Vaccine (Pneumovax 23 Vaccine) 0.5 ml IM .ONCE ONE Stop: 10/20/16 10:01 - Labs Labs: 10/19/16 15:03 10/19/16 15:03 PT 11.8 SECONDS (9.7-12.2) 10/17/16 23:31 INR 1.1 10/17/16 23:31 APTT 27 SECONDS (21-34) 10/17/16 23:31 - Constitutional Appears: Well, Non-toxic, No Acute Distress - Head Exam Head Exam: ATRAUMATIC, NORMAL INSPECTION, NORMOCEPHALIC - Eye Exam Eye Exam: EOMI - ENT Exam ENT Exam: Mucous Membranes Moist - Neck Exam Neck Exam: Full ROM - Respiratory Exam Respiratory Exam: Clear to Ausculation Bilateral - Cardiovascular Exam Cardiovascular Exam: REGULAR RHYTHM. absent: Diastolic murmur, Gallop, Irregular Rhythm, Rubs - GI/Abdominal Exam GI & Abdominal Exam: Soft, Normal Bowel Sounds. absent: Distended, Tenderness - Extremities Exam Extremities Exam: Full ROM - Neurological Exam Neurological Exam: Alert, Awake, Oriented x3 - Psychiatric Exam Psychiatric exam: Normal Affect, Normal Mood - Skin Skin Exam: Dry, Intact, Normal Color, Warm Assessment and Plan - Assessment and Plan (Free Text) Assessment: (1) Acute pancreatitis Ferdinand cancelled due to patients anemia and refusal for blood products. Will follow up outpatient for elective ferdinand after anemia and pancreatitis have resolved. CT Scan w IV contrast- 10/18/16- Probable ruptured or involuting right ovarian cyst, 2.0 cm. Mild thickening of gall bladder wall, nonspecific. No calcified gallstones focal gallstones were demonstrated on abdominal ultrasound examination of 09/30/15. (Please see full report) Abdomen Ultrasound- 10/18/16- Cholelithiasis. Mild gallbladder wall thickening/ pericholecystic edema. Echogenic liver seen in setting of hepatic parnechymal disease or fatty infiltration. 9mm nonspecific focus within the right hepatic lobe. Tolerating CLD Lactated Ringers @ 150 cc/hr Morphine 1mg IVP Q4h PRN for pain (2) Anemia Hgb 7.7 on admission Consult Hemeonc- Dr. Posadas f/u iron studies (3) Prophylactic measure Protonix 40mg IVP Daily SCDs <Kendell Braga - Last Filed: 11/22/16 15:23> Objective - Vital Signs/Intake and Output Vital Signs (last 24 hours): Temp Pulse Resp BP Pulse Ox 97.2 F L 62 20 110/69 98 10/20/16 07:00 10/20/16 07:00 10/20/16 07:00 10/20/16 07:00 10/20/16 07:00 - Labs Labs: 10/19/16 15:03 10/19/16 15:03 PT 11.8 SECONDS (9.7-12.2) 10/17/16 23:31 INR 1.1 10/17/16 23:31 APTT 27 SECONDS (21-34) 10/17/16 23:31 Attending/Attestation - Attestation I have personally seen and examined this patient.: Yes I have fully participated in the care of the patient.: Yes I have reviewed all pertinent clinical information, including history, physical exam and plan: Yes Notes (Text): (1) Acute pancreatitis (2) Anemia
[2016-10-20] MEDS: Lactated Ringer's 1,000 ML IV SCH ×2 (00:45→08:38)
--- NOTE | 2016-10-20 01:55 | CP.PCM.CON ---
History of Present Illness - History of Present Illness History of Present Illness: 45 year old female with a history of pancreatitis, admitted with abdominal pain found to have recurrent pancreatitis, ruptured ovarian cyst, with anemia. The patient reports to abdominal pain similar to prior pain she experienced with last years pancreatitis. She also notes to increasing fatigue and dyspnea on exertion. Past medical history: Pancreatitis Past surgical history: None Family history: Denies hematologic and oncologic problems Social history: Denies tobacco, alcohol, and illicit drug use. Allergies: Penicillins Review of systems: All remaining review of systems including HEENT, cardiovascular, respiratory, gastrointestinal, genitourinary, musculoskeletal, dermatologic, neurologic, and psychiatric are negative unless mentioned in the HPI. Past Patient History - Infectious Disease Hx of Infectious Diseases: None - Past Medical History & Family History Past Medical History?: No - Past Social History Smoking Status: Never Smoked Chewing Tobacco Use: No Cigar Use: No Alcohol: None Drugs: Denies - CARDIAC Hx Hypercholesterolemia: Yes - MUSCULOSKELETAL/RHEUMATOLOGICAL Hx Falls: No - GASTROINTESTINAL Hx Gastritis: Yes - PSYCHIATRIC Hx Substance Use: No - SURGICAL HISTORY Hx Surgeries: No - ANESTHESIA Hx Anesthesia: No Has any member of the family had a problem w/ anesthesia?: No Meds Allergies/Adverse Reactions: Allergies Allergy/AdvReac Type Severity Reaction Status Date / Time Penicillins Allergy Severe hives Verified 10/17/16 23:07 - Medications Medications: Current Medications Enoxaparin Sodium (Lovenox) 40 mg SC DAILY [facility] Last Admin: 10/19/16 09:31 Dose: 40 mg Ferric Sodium Gluconate Complex (Ferrlecit) 125 mg IVPB DAILY [facility] Stop: 10/26/16 17:46 Last Admin: 10/19/16 09:20 Dose: 125 mg Lactated Ringer's (Lactated Ringer's) 1,000 mls @ 150 mls/hr IV .Q6H40M [facility] Last Admin: 10/19/16 18:00 Dose: 150 mls/hr Morphine Sulfate (Morphine) 1 mg IVP Q4 PRN PRN Reason: Pain, severe (8-10) Pantoprazole Sodium (Protonix Inj) 40 mg IVP DAILY [facility] Last Admin: 10/19/16 09:29 Dose: 40 mg Pneumococcal Polyvalent Vaccine (Pneumovax 23 Vaccine) 0.5 ml IM .ONCE ONE Stop: 10/20/16 10:01 Physical Exam - Head Exam Head Exam: ATRAUMATIC - Eye Exam Eye Exam: Normal appearance - ENT Exam ENT Exam: Mucous Membranes Dry - Respiratory Exam Respiratory Exam: NORMAL BREATHING PATTERN - Cardiovascular Exam Cardiovascular Exam: +S1, +S2 - GI/Abdominal Exam GI & Abdominal Exam: Normal Bowel Sounds - Extremities Exam Extremities exam: Positive for: normal inspection - Neurological Exam Neurological exam: Oriented x3 - Psychiatric Exam Psychiatric exam: Normal Affect, Normal Mood - Skin Skin Exam: Warm Results - Vital Signs Recent Vital Signs: Last Vital Signs Temp 97.7 F 10/19/16 15:06 Pulse 63 10/19/16 15:06 Resp 20 10/19/16 15:06 BP 117/69 10/19/16 15:06 Pulse Ox 100 10/19/16 15:06 - Labs Result Diagrams: 10/19/16 15:03 10/19/16 15:03 Labs: Laboratory Results - last 24 hr 10/19/16 10/19/16 10/19/16 02:32 15:03 15:03 WBC 6.2 RBC 4.09 Hgb 7.9 L Hct 26.2 L MCV 64.1 L MCH 19.3 L MCHC 30.1 L RDW 19.2 H Plt Count 298 MPV 8.8 Neut % (Auto) 65.1 Lymph % (Auto) 27.3 Glynn % (Auto) 5.5 Eos % (Auto) 1.7 Baso % (Auto) 0.4 Neut # 4.0 Lymph # 1.7 Glynn # 0.3 Eos # 0.1 Baso # 0.0 Sodium 141 Potassium 3.3 L Chloride 103 Carbon Dioxide 24 Anion Gap 17 BUN 2 L Creatinine 0.4 L Est GFR ( Amer) > 60 Est GFR (Non-Af Amer) > 60 POC Glucose (mg/dL) 97 Random Glucose 133 H Calcium 9.1 Ferritin 25.5 Total Bilirubin 0.4 AST 20 ALT 21 Alkaline Phosphatase 69 Total Protein 6.8 Albumin 3.5 Globulin 3.3 Albumin/Globulin Ratio 1.1 Lipase 148 Assessment & Plan (1) Anemia Assessment and Plan: work consistent with iron deficiency check FOBT on IV iron transfusion support PRN Thank you for this interesting consult. Status: Acute
--- NOTE | 2016-10-20 01:58 | CP.PCM.PN ---
Subjective - Date & Time of Evaluation Date of Evaluation: 10/19/16 Time of Evaluation: 17:20 - Subjective Subjective: Feeling better. Objective - Vital Signs/Intake and Output Vital Signs (last 24 hours): Temp Pulse Resp BP Pulse Ox 97.7 F 63 20 117/69 100 10/19/16 15:06 10/19/16 15:06 10/19/16 15:06 10/19/16 15:06 10/19/16 15:06 Intake and Output: 10/19/16 10/20/16 18:59 06:59 Intake Total 2250 1680 Balance 2250 1680 - Medications Medications: Current Medications Enoxaparin Sodium (Lovenox) 40 mg SC DAILY [facility] Last Admin: 10/19/16 09:31 Dose: 40 mg Ferric Sodium Gluconate Complex (Ferrlecit) 125 mg IVPB DAILY [facility] Stop: 10/26/16 17:46 Last Admin: 10/19/16 09:20 Dose: 125 mg Lactated Ringer's (Lactated Ringer's) 1,000 mls @ 150 mls/hr IV .Q6H40M [facility] Last Admin: 10/19/16 18:00 Dose: 150 mls/hr Morphine Sulfate (Morphine) 1 mg IVP Q4 PRN PRN Reason: Pain, severe (8-10) Pantoprazole Sodium (Protonix Inj) 40 mg IVP DAILY [facility] Last Admin: 10/19/16 09:29 Dose: 40 mg Pneumococcal Polyvalent Vaccine (Pneumovax 23 Vaccine) 0.5 ml IM .ONCE ONE Stop: 10/20/16 10:01 - Labs Labs: 10/19/16 15:03 10/19/16 15:03 PT 11.8 SECONDS (9.7-12.2) 10/17/16 23:31 INR 1.1 10/17/16 23:31 APTT 27 SECONDS (21-34) 10/17/16 23:31 - Head Exam Head Exam: ATRAUMATIC - Eye Exam Eye Exam: Normal appearance - ENT Exam ENT Exam: Mucous Membranes Dry - Respiratory Exam Respiratory Exam: NORMAL BREATHING PATTERN - Cardiovascular Exam Cardiovascular Exam: +S1, +S2 - GI/Abdominal Exam GI & Abdominal Exam: Normal Bowel Sounds - Extremities Exam Extremities Exam: Normal Inspection Assessment and Plan (1) Anemia Assessment & Plan: iron deficiency IV iron transfusion support PRN Status: Acute
[2016-10-20] MEDS: Ferric Sodium Gluconat Complex 62.5 mg/5 ml Vial IVPB SCH (09:02)
[2016-10-20 09:04] VITALS: BP 110/69; PULSE 62; TEMP 97.2; O2SAT 98
[2016-10-20] MEDS ORDERED: Pneumococcal 23-Valent Vaccine IM ONE (10:00)
--- NOTE | 2016-10-20 13:12 | CP.PCM.PN ---
Subjective - Date & Time of Evaluation Date of Evaluation: 10/20/16 Time of Evaluation: 12:10 - Subjective Subjective: Feels tired Objective - Vital Signs/Intake and Output Vital Signs (last 24 hours): Temp Pulse Resp BP Pulse Ox 97.2 F L 62 20 110/69 98 10/20/16 07:00 10/20/16 07:00 10/20/16 07:00 10/20/16 07:00 10/20/16 07:00 Intake and Output: 10/20/16 10/20/16 06:59 18:59 Intake Total 2880 Balance 2880 - Medications Medications: Current Medications Enoxaparin Sodium (Lovenox) 40 mg SC DAILY [facility] Last Admin: 10/19/16 09:31 Dose: 40 mg Ferric Sodium Gluconate Complex (Ferrlecit) 125 mg IVPB DAILY [facility] Stop: 10/26/16 17:46 Last Admin: 10/20/16 09:02 Dose: 125 mg Lactated Ringer's (Lactated Ringer's) 1,000 mls @ 150 mls/hr IV .Q6H40M [facility] Last Admin: 10/20/16 08:38 Dose: 150 mls/hr Morphine Sulfate (Morphine) 1 mg IVP Q4 PRN PRN Reason: Pain, severe (8-10) Pantoprazole Sodium (Protonix Inj) 40 mg IVP DAILY [facility] Last Admin: 10/20/16 09:01 Dose: 40 mg - Labs Labs: 10/19/16 15:03 10/19/16 15:03 PT 11.8 SECONDS (9.7-12.2) 10/17/16 23:31 INR 1.1 10/17/16 23:31 APTT 27 SECONDS (21-34) 10/17/16 23:31 - Head Exam Head Exam: ATRAUMATIC - Eye Exam Eye Exam: Normal appearance - ENT Exam ENT Exam: Mucous Membranes Dry - Respiratory Exam Respiratory Exam: NORMAL BREATHING PATTERN - Cardiovascular Exam Cardiovascular Exam: +S1, +S2 - GI/Abdominal Exam GI & Abdominal Exam: Normal Bowel Sounds Assessment and Plan (1) Anemia Assessment & Plan: iron deficiency on IV iron f/u FOBT refusing PRBC transfusion Status: Acute
--- NOTE | 2016-10-20 15:09 | CP.PCM.DIS ---
<Ermias Sevilla - Last Filed: 10/20/16 15:05> Provider - Provider Date of Admission: 10/18/16 01:59 Attending physician: Kendell Braga MD Consults: GI: Selvin Surgery: Nolberto Heme: [place] Time Spent in preparation of Discharge (in minutes): 60 Hospital Course - Lab Results Lab Results: Most Recent Lab Values WBC 6.2 K/uL (4.8-10.8) 10/19/16 15:03 RBC 4.09 Mil/uL (3.80-5.20) 10/19/16 15:03 Hgb 7.9 g/dL (11.0-16.0) L 10/19/16 15:03 Hct 26.2 % (34.0-47.0) L 10/19/16 15:03 MCV 64.1 fL (81.0-99.0) L 10/19/16 15:03 MCH 19.3 pg (27.0-31.0) L 10/19/16 15: MCHC 30.1 g/dL (33.0-37.0) L 10/19/16 15:03 RDW 19.2 % (11.5-14.5) H 10/19/16 15:03 Plt Count 298 K/uL (130-400) 10/19/16 15:03 MPV 8.8 fL (7.2-11.7) 10/19/16 15:03 Neut % (Auto) 65.1 % (50.0-75.0) 10/19/16 15:03 Lymph % (Auto) 27.3 % (20.0-40.0) 10/19/16 15:03 Park % (Auto) 5.5 % (0.0-10.0) 10/19/16 15:03 Eos % (Auto) 1.7 % (0.0-4.0) 10/19/16 15:03 Baso % (Auto) 0.4 % (0.0-2.0) 10/19/16 15:03 Neut # 4.0 K/uL (1.8-7.0) 10/19/16 15:03 Lymph # 1.7 K/uL (1.0-4.3) 10/19/16 15:03 Park # 0.3 K/uL (0.0-0.8) 10/19/16 15:03 Eos # 0.1 K/uL (0.0-0.7) 10/19/16 15:03 Baso # 0.0 K/uL (0.0-0.2) 10/19/16 15:03 PT 11.8 SECONDS (9.7-12.2) 10/17/16 23:31 INR 1.1 10/17/16 23:31 APTT 27 SECONDS (21-34) 10/17/16 23:31 Sodium 141 mmol/L (132-148) 10/19/16 15:03 Potassium 3.3 mmol/L (3.6-5.2) L 10/19/16 15:03 Chloride 103 mmol/L (98-107) 10/19/16 15:03 Carbon Dioxide 24 mmol/L (22-30) 10/19/16 15:03 Anion Gap 17 (10-20) 10/19/16 15:03 BUN 2 mg/dL (7-17) L 10/19/16 15:03 Creatinine 0.4 MG/DL (0.7-1.2) L 10/19/16 15:03 Est GFR ( Amer) > 60 10/19/16 15:03 Est GFR (Non-Af Amer) > 60 10/19/16 15:03 POC Glucose (mg/dL) 97 mg/dL (65-110) 10/19/16 02:32 Random Glucose 133 mg/dL (65-105) H 10/19/16 15:03 Calcium 9.1 mg/dl (8.6-10.4) 10/19/16 15:03 Ferritin 25.5 ng/mL 10/19/16 15:03 Total Bilirubin 0.4 mg/dL (0.2-1.3) 10/19/16 15:03 AST 20 U/L (14-36) 10/19/16 15:03 ALT 21 U/L (9-52) 10/19/16 15:03 Alkaline Phosphatase 69 U/L (38-126) 10/19/16 15:03 Total Protein 6.8 g/dL (6.3-8.3) 10/19/16 15:03 Albumin 3.5 g/dL (3.5-5.0) 10/19/16 15:03 Globulin 3.3 gm/dL (2.2-3.9) 10/19/16 15:03 Albumin/Globulin Ratio 1.1 (1.0-2.1) 10/19/16 15:03 Triglycerides 96 mg/dL (0-149) 10/18/16 11:41 Cholesterol 171 mg/dL (0-199) 10/18/16 11:41 LDL Cholesterol Direct 85 mg/dL (0-129) 10/18/16 11:41 HDL Cholesterol 68 mg/dL (30-70) 10/18/16 11:41 Lipase 148 U/L (23-300) 10/19/16 15:03 Urine Color Yellow (YELLOW) 10/17/16 23:31 Urine Clarity Clear (Clear) 10/17/16 23: Urine pH 7.0 (5.0-8.0) 10/17/16 23:31 Ur Specific [place] 1.017 (1.003-1.030) 10/17/16 23:31 Urine Protein Negative mg/dL (NEGATIVE) 10/17/16 23:31 Urine Glucose (UA) Normal mg/dL (Normal) 10/17/16 23:31 Urine Ketones Negative mg/dL (NEGATIVE) 10/17/16 23:31 Urine Blood Negative (NEGATIVE) 10/17/16 23: Urine Nitrate Negative (NEGATIVE) 10/17/16 23:31 Urine Bilirubin Negative (NEGATIVE) 10/17/16 23:31 Urine Urobilinogen Normal mg/dL (0.2-1.0) 10/17/16 23:31 Ur Leukocyte Esterase Neg Rissa/uL (Negative) 10/17/16 23:31 Urine WBC (Auto) 2 /hpf (0-5) 10/17/16 23:31 Urine RBC (Auto) 2 /hpf (0-3) 10/17/16 23:31 Ur Squamous Epith Cells 1 /hpf (0-5) 10/17/16 23: Urine HCG, Qual Negative (NEGATIVE) 10/17/16 23:31 - Hospital Course Hospital Course: Patient is a 45 year old female with PMHx of hyperlipidemia, hx of pancreatitis , anemia presenting to the ED complaining of abdominal pain that started yesterday morning, localized to the right upper quadrant, described as a sharp pain. She said the pain worsened after eating, but not during. She says she has had this once before, per records she was at [facility] for pancreatitis in September of 2015. She denied fevers, chills, chest pain, palpitations, nausea, vomiting. Patient reports that in the past, she has been told that she was anemic, but she does not know why. She reports she has had tranfusions in the past. She denies any heavy menstrual periods, no rectal bleeding, hematuria. Denies any previous colonoscopy. Patient arrived to ED on 10/17/16 complaining of RUQ pain. Patient was admitted on 10/18/16 due to severity of symptoms and need for intense medical care. Due to severe abdominal symptomes, Dr. Hollis, consulted on 10/18/16. Ultrasound and Abdomen/Pelvic CT performed on 10/18/16. US showed probably ruptured involuting right ovarian cyst, mild thickening of gallbladder wall. CT showed cholelithiasis, mild gallbaldder wall thickeing, pericholecystic edema. General Surgery, Dr Joseph consulted due to abnormal CT and US and recommended surgical intervention for gallstone pancreatitis on 10/18/16. Patient scheduled for OR Dr. Posadas, heme/onc, consulted for anemia who determined iron deficiency anemia on 10/18/16. Dr. Joseph requested blood tranfusion prior to surgery. Patient refused on and was also refusing blood work. Surgical intervention canceled due to patient refusal of blood transfusion on . - Date & Time of H&P Date of H&P: 10/18/16 Time of H&P: 13:30 Discharge Exam - Head Exam Head Exam: ATRAUMATIC, NORMAL INSPECTION, NORMOCEPHALIC - Eye Exam Eye Exam: EOMI - ENT Exam ENT Exam: Mucous Membranes Moist - Respiratory Exam Respiratory Exam: NORMAL BREATHING PATTERN, UNREMARKABLE. absent: Rales, Rhonchi, Wheezes, Stridor - Cardiovascular Exam Cardiovascular Exam: REGULAR RHYTHM, RRR. absent: Gallop, JVD, Rubs, Systolic Murmur - GI/Abdominal Exam GI & Abdominal Exam: Normal Bowel Sounds, Soft. absent: Distended, Firm, Tenderness - Neurological Exam Neurological exam: Alert, Oriented x3 - Psychiatric Exam Psychiatric exam: Normal Affect, Normal Mood - Skin Skin Exam: Dry, Intact, Normal Color, Warm Discharge Plan - Discharge Medications Prescriptions: Ferrous Gluconate [Iron] 236 mg PO DAILY #30 tablet Pantoprazole Sodium [Protonix] 40 mg PO DAILY #30 - Follow Up Plan Condition: FAIR Disposition: HOME/ ROUTINE Instructions: Iron Supplements (By mouth), Pantoprazole (By mouth), Pancreatitis (DC), Low Fat Diet (DC), Anemia (DC) Additional Instructions: Patient is medically stable for discharge Patient must follow up in Dr. Arvizu's office in one week for evaluation for elective Cholecytectomy. If patients symptoms return please come back to the ER. Prescription instructions will be provided at discharge Patient agrees with plan. Referrals: Binu Arvizu MD [Staff Provider] - <Kendell Braga - Last Filed: 11/22/16 15:24> Provider - Provider Date of Admission: 10/18/16 01:59 Attending physician: Kendell Braga MD Hospital Course - Lab Results Lab Results: Most Recent Lab Values WBC 6.2 K/uL (4.8-10.8) 10/19/16 15:03 RBC 4.09 Mil/uL (3.80-5.20) 10/19/16 15:03 Hgb 7.9 g/dL (11.0-16.0) L 10/19/16 15:03 Hct 26.2 % (34.0-47.0) L 10/19/16 15:03 MCV 64.1 fL (81.0-99.0) L 10/19/16 15:03 MCH 19.3 pg (27.0-31.0) L 10/19/16 15:03 MCHC 30.1 g/dL (33.0-37.0) L 10/19/16 15:03 RDW 19.2 % (11.5-14.5) H 10/19/16 15:03 Plt Count 298 K/uL (130-400) 10/19/16 15:03 MPV 8.8 fL (7.2-11.7) 10/19/16 15:03 Neut % (Auto) 65.1 % (50.0-75.0) 10/19/16 15:03 Lymph % (Auto) 27.3 % (20.0-40.0) 10/19/16 15:03 Park % (Auto) 5.5 % (0.0-10.0) 10/19/16 15:03 Eos % (Auto) 1.7 % (0.0-4.0) 10/19/16 15:03 Baso % (Auto) 0.4 % (0.0-2.0) 10/19/16 15:03 Neut # 4.0 K/uL (1.8-7.0) 10/19/16 15:03 Lymph # 1.7 K/uL (1.0-4.3) 10/19/16 15:03 Park # 0.3 K/uL (0.0-0.8) 10/19/16 15:03 Eos # 0.1 K/uL (0.0-0.7) 10/19/16 15:03 Baso # 0.0 K/uL (0.0-0.2) 10/19/16 15:03 PT 11.8 SECONDS (9.7-12.2) 10/17/16 23:31 INR 1.1 10/17/16 23:31 APTT 27 SECONDS (21-34) 10/17/16 23:31 Sodium 141 mmol/L (132-148) 10/19/16 15:03 Potassium 3.3 mmol/L (3.6-5.2) L 10/19/16 15:03 Chloride 103 mmol/L (98-107) 10/19/16 15:03 Carbon Dioxide 24 mmol/L (22-30) 10/19/16 15:03 Anion Gap 17 (10-20) 10/19/16 15:03 BUN 2 mg/dL (7-17) L 10/19/16 15:03 Creatinine 0.4 MG/DL (0.7-1.2) L 10/19/16 15:03 Est GFR ( Amer) > 60 10/19/16 15:03 Est GFR (Non-Af Amer) > 60 10/19/16 15:03 POC Glucose (mg/dL) 97 mg/dL (65-110) 10/19/16 02:32 Random Glucose 133 mg/dL (65-105) H 10/19/16 15:03 Calcium 9.1 mg/dl (8.6-10.4) 10/19/16 15:03 Ferritin 25.5 ng/mL 10/19/16 15:03 Total Bilirubin 0.4 mg/dL (0.2-1.3) 10/19/16 15:03 AST 20 U/L (14-36) 10/19/16 15:03 ALT 21 U/L (9-52) 10/19/16 15:03 Alkaline Phosphatase 69 U/L (38-126) 10/19/16 15:03 Total Protein 6.8 g/dL (6.3-8.3) 10/19/16 15:03 Albumin 3.5 g/dL (3.5-5.0) 10/19/16 15:03 Globulin 3.3 gm/dL (2.2-3.9) 10/19/16 15:03 Albumin/Globulin Ratio 1.1 (1.0-2.1) 10/19/16 15:03 Triglycerides 96 mg/dL (0-149) 10/18/16 11:41 Cholesterol 171 mg/dL (0-199) 10/18/16 11:41 LDL Cholesterol Direct 85 mg/dL (0-129) 10/18/16 11:41 HDL Cholesterol 68 mg/dL (30-70) 10/18/16 11:41 Lipase 148 U/L (23-300) 10/19/16 15:03 Urine Color Yellow (YELLOW) 10/17/16 23:31 Urine Clarity Clear (Clear) 10/17/16 23:31 Urine pH 7.0 (5.0-8.0) 10/17/16 23:31 Ur Specific [place] 1.017 (1.003-1.030) 10/17/16 23:31 Urine Protein Negative mg/dL (NEGATIVE) 10/17/16 23:31 Urine Glucose (UA) Normal mg/dL (Normal) 10/17/16 23:31 Urine Ketones Negative mg/dL (NEGATIVE) 10/17/16 23:31 Urine Blood Negative (NEGATIVE) 10/17/16 23:31 Urine Nitrate Negative (NEGATIVE) 10/17/16 23:31 Urine Bilirubin Negative (NEGATIVE) 10/17/16 23:31 Urine Urobilinogen Normal mg/dL (0.2-1.0) 10/17/16 23:31 Ur Leukocyte Esterase Neg Rissa/uL (Negative) 10/17/16 23:31 Urine WBC (Auto) 2 /hpf (0-5) 10/17/16 23:31 Urine RBC (Auto) 2 /hpf (0-3) 10/17/16 23:31 Ur Squamous Epith Cells 1 /hpf (0-5) 10/17/16 23:31 Urine HCG, Qual Negative (NEGATIVE) 10/17/16 23:31 IgG, Serum (MS) 14.1 mg/dL (4-86) 10/18/16 19:59 Attending/Attestation - Attestation I have personally seen and examined this patient.: Yes I have fully participated in the care of the patient.: Yes I have reviewed all pertinent clinical information, including history, physical exam and plan: Yes Notes (Text): Patient arrived to ED on 10/17/16 complaining of RUQ pain. Patient was admitted on 10/18/16 due to severity of symptoms and need for intense medical care. Due to severe abdominal symptomes, Dr. Hollis, consulted on 10/18/16. Ultrasound and Abdomen/Pelvic CT performed on 10/18/16. US showed probably ruptured involuting right ovarian cyst, mild thickening of gallbladder wall. CT showed cholelithiasis, mild gallbaldder wall thickeing, pericholecystic edema. General Surgery, Dr Joseph consulted due to abnormal CT and US and recommended surgical intervention for gallstone pancreatitis on 10/18/16. Patient scheduled for OR
--- NOTE | 2016-10-20 15:48 | CP.PCM.PN ---
<Clyde Kuhn - Last Filed: 10/20/16 15:45> Subjective - Date & Time of Evaluation Date of Evaluation: 10/20/16 Time of Evaluation: 07:15 - Subjective Subjective: General Surgery- Dr. Arvizu Pt S&E at bedside this AM. No acute events overnight. Pt is now refusing transfusion and surgery at this time. Denies F/C CP/SOB N/V/D Objective - Vital Signs/Intake and Output Vital Signs (last 24 hours): Temp Pulse Resp BP Pulse Ox 97.2 F L 62 20 110/69 98 10/20/16 07:00 10/20/16 07:00 10/20/16 07:00 10/20/16 07:00 10/20/16 07:00 Intake and Output: 10/20/16 10/20/16 06:59 18:59 Intake Total 2880 1650 Balance 2880 1650 - Medications Medications: Current Medications Enoxaparin Sodium (Lovenox) 40 mg SC DAILY [facility] Last Admin: 10/19/16 09:31 Dose: 40 mg Ferric Sodium Gluconate Complex (Ferrlecit) 125 mg IVPB DAILY [facility] Stop: 10/26/16 17:46 Last Admin: 10/20/16 09:02 Dose: 125 mg Lactated Ringer's (Lactated Ringer's) 1,000 mls @ 150 mls/hr IV .Q6H40M [facility] Last Admin: 10/20/16 08:38 Dose: 150 mls/hr Morphine Sulfate (Morphine) 1 mg IVP Q4 PRN PRN Reason: Pain, severe (8-10) Pantoprazole Sodium (Protonix Inj) 40 mg IVP DAILY [facility] Last Admin: 10/20/16 09:01 Dose: 40 mg - Labs Labs: 10/19/16 15:03 10/19/16 15:03 PT 11.8 SECONDS (9.7-12.2) 10/17/16 23:31 INR 1.1 10/17/16 23:31 APTT 27 SECONDS (21-34) 10/17/16 23:31 - Constitutional Appears: No Acute Distress - Head Exam Head Exam: ATRAUMATIC - ENT Exam ENT Exam: Mucous Membranes Moist - Respiratory Exam Respiratory Exam: NORMAL BREATHING PATTERN. absent: Accessory Muscle Use, Rhonchi, Wheezes - Cardiovascular Exam Cardiovascular Exam: +S1, +S2 - GI/Abdominal Exam GI & Abdominal Exam: Soft, Normal Bowel Sounds. absent: Distended, Firm, Guarding, Tenderness - Neurological Exam Neurological Exam: Alert, Awake, Oriented x3 - Psychiatric Exam Psychiatric exam: Normal Mood - Skin Skin Exam: Normal Color, Warm Assessment and Plan - Assessment and Plan (Free Text) Assessment: 45F w/ gallstone pancreatitis Plan: - pt currently refusing surgery - pain has resolved. recommend out patient follow up in one week for elective cholecystectomy d/w Dr. Nolberto Kuhn PGY1 <Binu Arvizu - Last Filed: 10/23/16 17:04> Objective - Vital Signs/Intake and Output Vital Signs (last 24 hours): Temp Pulse Resp BP Pulse Ox 97.2 F L 62 20 110/69 98 10/20/16 07:00 10/20/16 07:00 10/20/16 07:00 10/20/16 07:00 10/20/16 07:00 - Labs Labs: 10/19/16 15:03 10/19/16 15:03 PT 11.8 SECONDS (9.7-12.2) 10/17/16 23:31 INR 1.1 10/17/16 23:31 APTT 27 SECONDS (21-34) 10/17/16 23:31 Attending/Attestation - Attestation I have personally seen and examined this patient.: Yes I have fully participated in the care of the patient.: Yes I have reviewed all pertinent clinical information, including history, physical exam and plan: Yes Notes (Text): 10/23/16 17:03 Pt was seen and examined at bedside Agree with above note and assessment Pt with Resolved GS pancreatitis with Anemia Pt is refusin transfusion and Surgery at present F.U in clinic as out pt. Plan d.w pt in detail Risk and benefit explained in detail.
== END 2016-10-20 16:50 | disposition home or self-care (01) | DRG 440 ==
LOC: C.ER 22:51 → C.9E 10-18 01:59 → C.6T 10-18 03:24
PROVIDERS: ADMIT Internal Medicine; ATTEND Internal Medicine
DX: K85.10 Biliary acute pancreatitis without necrosis or infection (principal); D50.9 Iron deficiency anemia, unspecified; K86.1 Other chronic pancreatitis; K80.20 Calculus of gallbladder without cholecystitis without obstruction; K76.0 Fatty (change of) liver, not elsewhere classified; N83.201 Unspecified ovarian cyst, right side; E78.5 Hyperlipidemia, unspecified; E78.00 Pure hypercholesterolemia, unspecified; Z53.09 Procedure and treatment not carried out because of other contraindication; Z53.29 Procedure and treatment not carried out because of patient's decision for other reasons; Z88.0 Allergy status to penicillin

== ENCOUNTER 2017-10-13 01:29 | Emergency (ER) | payer OTHER ==
[2017-10-13 01:30] VITALS: BMI 23.9
[2017-10-13] MEDS ORDERED: Sodium Chloride 0.9% 1,000 ML IV ONE (02:23)
--- NOTE | 2017-10-13 02:25 | C.PDOC ---
History Of Present Illness 46 year old female presents to the ER with a complaint of a headache and tingling sensation to the left upper extremity. Denies weakness or numbness. Chief Complaint (Nursing): Headache History Per: Patient History/Exam Limitations: no limitations Onset/Duration Of Symptoms: Hrs Current Symptoms Are (Timing): Still Present Preceeding Symptoms: None Associated Symptoms: denies: Photophobia, Blurred Vision, Nausea, Vomiting, Extremity Weakness Recent travel outside of the [place]: No Past Medical History Reviewed: Historical Data, Nursing Documentation, Vital Signs Vital Signs: Last Vital Signs Temp 98.5 F 10/13/17 01:37 Pulse 61 10/13/17 01:37 Resp 18 10/13/17 01:37 BP 130/60 10/13/17 01:37 Pulse Ox 100 10/13/17 03:35 - Medical History PMH: Gastritis, Hypercholesterolemia Denies: Chronic Kidney Disease Family History: States: Unknown Family Hx - Social History Hx Alcohol Use: No Hx Substance Use: No - Immunization History Hx Tetanus Toxoid Vaccination: No Hx Influenza Vaccination: Yes Hx Pneumococcal Vaccination: No Review Of Systems Constitutional: Negative for: Fever, Chills Cardiovascular: Negative for: Chest Pain, Palpitations Respiratory: Negative for: Cough, Shortness of Breath Gastrointestinal: Negative for: Nausea, Vomiting Neurological: Positive for: Headache, Other (Tingling to left upper extremity). Negative for: Weakness, Numbness Physical Exam - Physical Exam Appears: Non-toxic Skin: Normal Color, Warm, Dry Head: Atraumatic, Normacephalic Eye(s): bilateral: Normal Inspection, PERRL, EOMI Oral Mucosa: Moist Neck: Normal, No Midline Cervical Tenderness, No Paracervical Tenderness, Supple Chest: Symmetrical, No Tenderness Cardiovascular: Rhythm Regular Respiratory: Normal Breath Sounds, No Rales, No Rhonchi, No Wheezing Gastrointestinal/Abdominal: Soft, No Tenderness Back: No Vertebral Tenderness, No Paraspinal Tenderness Extremity: Normal ROM (x4) Pulses: Left Radial: Normal, Right Radial: Normal Neurological/Psych: Oriented x3, Normal Speech, Normal Motor, Normal Sensation Gait: Steady ED Course And Treatment - Laboratory Results Result Diagrams: 10/13/17 02:54 10/13/17 02:54 ECG: Interpreted By Me, Viewed By Me ECG Rhythm: Sinus Bradycardia ECG Interpretation: Normal, No Acute Changes Interpretation Of ECG: Sinus bradycardia, normal tracings. Rate From EC O2 Sat by Pulse Oximetry: 100 (Room air) Pulse Ox Interpretation: Normal Progress Note: EKG, blood work, urinalysis, and CT head ordered. IV fluids and toradol administered. Disposition Counseled Patient/Family Regarding: Diagnosis - Disposition Referrals: [facility] at [facility] [Outside] Disposition: HOME/ ROUTINE Disposition Time: 03:35 Condition: STABLE Prescriptions: Ibuprofen [Motrin] 1 tab PO TID PRN #30 tab PRN Reason: Pain Multivit with Iron-Minerals [Centravites 50 Plus] 1 each PO DAILY #30 tablet Instructions: Headache, Adult (DC), Anemia Caused by Low Iron, Adult (DC) Forms: [facility] (Wolof), Gen Discharge Inst Korean Print Language: DANISH - POA Present On Arrival: None - Clinical Impression Clinical Impression: Headache, Anemia - Scribe Statement The provider has reviewed the documentation as recorded by the Scribe Provider Attestation: Manpreet Gordillo All medical record entries made by the Scribe were at my direction and personally dictated by me. I have reviewed the chart and agree that the record accurately reflects my personal performance of the history, physical exam, medical decision making, and the department course for this patient. I have also personally directed, reviewed, and agree with the discharge instructions and disposition.
[2017-10-13] MEDS ORDERED: Sodium Chloride 0.9% 1,000 ML ONE (02:55)
[2017-10-13 03:05] LABS: BASO # 0.1 K/uL (0.0-0.2); BASO % 0.8 % (0.0-2.0); EOS # 0.2 K/uL (0.0-0.7); EOS % 2.1 % (0.0-4.0); HEMOGLOBIN 8.9 g/dL (11.0-16.0); LYMPH # 2.2 K/uL (1.0-4.3); LYMPH % 30.4 % (20.0-40.0); MEAN CELL VOLUME 64.9 fL (81.0-99.0); MEAN CORPUSCULAR HEMOGLOBIN 19.6 pg (27.0-31.0); MEAN CORPUSCULAR HGB CONC 30.2 g/dL (33.0-37.0); MEAN PLATELET VOLUME 8.3 fL (7.2-11.7); MONO # 0.4 K/uL (0.0-0.8); NEUT # 4.3 K/uL (1.8-7.0); NEUT % 60.7 % (50.0-75.0); NRBC % 0.1 % (0.0-2.0); RBC 4.55 Mil/uL (3.80-5.20); RED CELL DISTRIBUTION WIDTH 19.3 % (11.5-14.5); WHITE BLOOD COUNT 7.1 K/uL (4.8-10.8)
[2017-10-13 03:15] LABS: ALB/GLOB RATIO 1.3 (1.0-2.1); ALBUMIN 4.4 g/dL (3.5-5.0); ALT/SGPT 24 U/L (9-52); AST/SGOT 39 U/L (14-36); BLOOD UREA NITROGEN 10 mg/dL (7-17); CALCIUM 9.2 mg/dl (8.6-10.4); GFR AFRICAN-AMERICAN > 60; GFR NON-AFRICAN AMERICAN > 60
[2017-10-13 03:58] VITALS: BP 115/73; PULSE 62; RESP 20; TEMP 98; O2SAT 98
--- NOTE | 2017-10-13 08:19 | CT ---
Date of service: 10/13/2017 PROCEDURE: CT HEAD WITHOUT CONTRAST. HISTORY: Headache COMPARISON: None available. TECHNIQUE: Axial computed tomography images were obtained through the head/brain without intravenous contrast. Radiation dose: Total exam DLP = 822 mGy-cm. This CT exam was performed using one or more of the following dose reduction techniques: Automated exposure control, adjustment of the mA and/or kV according to patient size, and/or use of iterative reconstruction technique. FINDINGS: HEMORRHAGE: No intracranial hemorrhage. BRAIN: No mass effect or edema. No atrophy or chronic microvascular ischemic changes. VENTRICLES: Unremarkable. No hydrocephalus. CALVARIUM: Unremarkable. PARANASAL SINUSES: Unremarkable as visualized. No significant inflammatory changes. MASTOID AIR CELLS: Unremarkable as visualized. No inflammatory changes. OTHER FINDINGS: None. IMPRESSION: No acute intracranial abnormality. If symptoms persist, consider correlation with MRI. These findings were preliminarily reported at 3:22 a.m. on 10/13/[address] Sonya Barrientos from [facility].
--- NOTE | 2017-10-15 12:49 | CARD ---
APPROVED REPORT Date of service: 10/13/2017 EKG Measurement Heart [id number] <Conclusion> Sinus bradycardia Otherwise normal ECG
== END 2017-10-13 03:58 | disposition home or self-care (01) ==
LOC: C.ER 01:29
DX: R51 Headache (principal); D64.9 Anemia, unspecified; E78.00 Pure hypercholesterolemia, unspecified
CPT/HCPCS: 70450; 80053; 85025; 96374; 99284; J1885; J7030

== ENCOUNTER 2018-05-17 17:58 | Inpatient (IN) | payer MEDICAID, OTHER | END 2018-05-19 20:54 | disposition home or self-care (01) | LOC: C.ER 17:58 → C.6T 23:45 ==

== ENCOUNTER 2018-05-25 09:36 | Outpatient (CLI) | payer OTHER | END 2018-05-25 09:37 | disposition home or self-care (01) | LOC: C.PAT 09:36 ==

== ENCOUNTER 2018-06-16 10:19 | Outpatient (CLI) | payer OTHER | END 2018-06-16 10:20 | disposition home or self-care (01) | LOC: C.LAB 10:19 | DX: K85.10 Biliary acute pancreatitis without necrosis or infection (principal) ==

== ENCOUNTER 2018-06-27 08:37 | Day surgery (SDC) | payer OTHER ==
[2018-06-27 09:35] VITALS: BMI 21.6
[2018-06-27 09:36] VITALS: O2SAT 100
[2018-06-27] MEDS ORDERED: Propofol 10 mg/ml Inj (20 ML) ONE (12:04)
[2018-06-27] MEDS ORDERED: Midazolam 2 MG/2 ML VIAL ONE (12:04)
[2018-06-27] MEDS ORDERED: Neostigmine 1:1000 (1 mg/ml) Inj ONE (13:14)
--- NOTE | 2018-06-27 13:53 | PCM.SURG1 ---
Surgeon's Initial Post Op Note - Surgeon's Notes Surgeon: Dr. Delacruz Chief Security And Safety Officer: Va PGY2 Type of Anesthesia: General Endo Anesthesia Administered By: Dr. Kin Beltran CRNA Pre-Operative Diagnosis: Biliary colic, cholelithiasis Operative Findings: Biliary colic, cholelithiasis, adhesions Post-Operative Diagnosis: Biliary colic, cholelithiasis Operation Performed: Laparoscopic Cholecystectomy Specimen/Specimens Removed: Gallbladder with stones Estimated Blood Loss: EBL {In ML}: 10 Blood Products Given: N/A Drains Used: No Drains Post-Op Condition: Good Date of Surgery/Procedure: 06/27/18 Time of Surgery/Procedure: 13:53
--- NOTE | 2018-06-27 13:53 | PCM.OP ---
Operative Report - Operative Report Date of Surgery/Procedure: 06/27/18 Time of Surgery/Procedure: 13:52 Surgeon: Dr. Delacruz Silica Mixer Operator: Va AGUILAR Anesthesia/Sedation: General Endo Pre-Operative Diagnosis: Biliary colic, cholelithiasis Post-Operative Diagnosis: Biliary colic, cholelithiasis Indication for Surgery: Biliary colic, cholelithiasis Operative Findings: Biliary colic, cholelithiasis, adhesions Procedure/Operation Description: Procedure: laparoscopic cholecystectomy 47F who presents for Laparoscopic Cholecystectomy. Consent was obtained before the procedure. Risks/benefits were discussed at length with the patient. The patient verbalized understanding and agreement. Patient was taken to the operating room and placed in the supine position. SCDs Were applied to bilateral lower extremities. General endotracheal anesthesia was administered. The patients abdomen was prepped and draped in the usual sterile fashion. Timeout was performed. #11 blade was used to make supraumbilical incision. Verses needle puncture was performed at this incision. The abdomen was insufflated to the optimal 15 mmhg with CO2. 12 mm laparoscopic trocar was inserted through the supraumbilical incision. Under direct visualization, a second 12 mm was placed subxiphoid then two additional 5 mm port were beneath the right costal margin (one medial and one lateral). The gallbladder was visualized. It appeared with adhesions, inflammation and mild distention. The gallbladder fundus was grasp in elevated towards the right shoulder. The infundibulum was cleared of overlying fatty tissue invitations then grasp and retracted laterally. The cystic duct was identified and dissected bluntly. The cystic duct was cleared towards the junction of the CBD as well as near its insertion to the gallbladder. The cystic artery was then identify and bluntly dissected. The critical view of safety was achieved. Three Clips were placed on the cystic duct and then it was divided with Endo Robb. The cystic artery was also clipped in the same fashion then was divided as well. The gallbladder was dissected off the liver bed using electrocautery. The liver bed was inspected for hemostasis before the dissection was completed. The gallbladder was completely removed from the liver bed and placed in a specimen retrieval bag before being removed from the supraumbilical port site. The right upper quadrant was irrigated and section. There was no evidence of bile or bleeding. The pneumoperitoneum was released and all the trocars were removed. The umbilical port site was then closed at the fascial layer with a figure of eight using 0 Vicryl on UR6 needle. All incisions were closed with subcuticular 4-0 Monocryl sutures. Dermabond was applied as dressing. All nursing counts were correct and confirmed. Patient tolerated the procedure well with no pain complications. The patient was transferred to the PACU for recovery. Estimated blood loss was 10 mL. Patient stable for discharge when SDS crtieria is met. Estimated Blood Loss: 10cc Complications: None Discharge & Condition: Good, Patient stable for discharge when SDS crtieria is met
[2018-06-27] MEDS ORDERED: Lactated Ringer's 1,000 ML IV SCH (14:00)
[2018-06-27 15:44] VITALS: BP 106/56; PULSE 62; RESP 18; TEMP 97.9
[2018-06-27] MEDS ORDERED: Oxycodone/Acetaminophen 5/325 mg Tab PO PRN (16:00)
== END 2018-06-27 15:55 | disposition home or self-care (01) ==
LOC: C.SDS 08:37
PROVIDERS: ATTEND Specialist
DX: K80.64 Calculus of gallbladder and bile duct with chronic cholecystitis without obstruction (principal)
CPT/HCPCS: 36415; 47562; 86850; 86900; 88304; J2250; J2270; J2405; J2704; J2710; J3010; J7040; J7120

== ENCOUNTER 2018-07-12 16:13 | Emergency (ER) | payer MEDICAID, OTHER ==
[2018-07-12 16:23] VITALS: BMI 23.0
[2018-07-12 16:26] VITALS: BP 126/77; PULSE 99; RESP 18; TEMP 98.6; O2SAT 99
--- NOTE | 2018-07-12 17:07 | C.PDOC ---
History Of Present Illness 47 y/o female presents to the ED for evaluation of subjective fever x 2 days. Patient states that yesterday she felt hot all over, particularly to the back of her head. She has been taking Motrin with some relief. Patient underwent gallbladder surgery by Dr. Delacruz on 06/27/18 and presents to the ED today because she is concerned whether her symptoms may be related to the surgery. She contacted Dr. Delacruz's office today and was advised to present to the ED for further evaluation. She denies sick contacts, headache, dizziness, weakness, chest pain, shortness of breath, nausea and vomiting. Chief Complaint (Nursing): Fever History Per: Patient History/Exam Limitations: no limitations Onset/Duration Of Symptoms: Days (2) Current Symptoms Are (Timing): Still Present Sick Contacts (Context): None Associated Symptoms: denies: Nausea, Vomiting Additional History Per: Patient Past Medical History Reviewed: Historical Data, Nursing Documentation, Vital Signs Vital Signs: Last Vital Signs Temp 98.6 F 07/12/18 16:23 Pulse 99 H 07/12/18 16:23 Resp 18 07/12/18 16:23 BP 126/77 07/12/18 16:23 Pulse Ox 99 07/12/18 16:23 Primary Care Provider: Cindy Dubose - Medical History PMH: Anemia, Gastritis (stones), Gall Bladder Disease, Hypercholesterolemia, Kidney Stones, Pancreatitis Denies: Chronic Kidney Disease Surgical History: Cholecystectomy Family History: States: Unknown Family Hx - Social History Hx Alcohol Use: No Hx Substance Use: No - Immunization History Hx Tetanus Toxoid Vaccination: No Hx Influenza Vaccination: No Hx Pneumococcal Vaccination: No Review Of Systems Constitutional: Positive for: Fever. Negative for: Weakness Cardiovascular: Negative for: Chest Pain Respiratory: Negative for: Shortness of Breath Gastrointestinal: Negative for: Nausea, Vomiting Neurological: Negative for: Headache, Dizziness Physical Exam - Physical Exam Appears: Non-toxic, No Acute Distress Skin: Normal Color, Warm, Dry Head: Atraumatic, Normacephalic Eye(s): bilateral: Normal Inspection, PERRL Ear(s): Bilateral: Normal Nose: Normal, No Discharge Oral Mucosa: Moist Tongue: Normal Appearing Lips: Normal Appearing Throat: Other (tonsillar hypertrophy bilaterally (patient states they are always enlarged)) Neck: Normal ROM, Supple Chest: Symmetrical, No Deformity, No Tenderness Cardiovascular: Rhythm Regular, No Murmur Respiratory: Normal Breath Sounds, No Rales, No Rhonchi, No Wheezing Gastrointestinal/Abdominal: Soft, No Tenderness Extremity: Normal ROM, Capillary Refill (less than 2 seconds ) Neurological/Psych: Oriented x3, Normal Speech, Normal Cognition, Normal Motor, Normal Sensation ED Course And Treatment - Laboratory Results Result Diagrams: 07/12/18 17:12 07/12/18 17:12 O2 Sat by Pulse Oximetry: 99 (on RA ) Pulse Ox Interpretation: Normal Medical Decision Making Medical Decision Making: Progress: 47 year old female with subjective fever Plan: * bloodwork * Flu swab * reassess and disposition Progress: Bloodwork ordered and reviewed with patient (patient aware of iron deficiency anemia otherwise unremarkable) Flu swab ordered, resulted negative for flu A/B. patient advised to Alternate Tylenol and mortin as needed for fever Rest and Hydration Follow up with Dr. Delacruz as scheduled or sooner patient is stable for discharge Disposition Counseled Patient/Family Regarding: Studies Performed, Diagnosis, Need For Followup, Rx Given - Disposition Referrals: Richie Delacruz MD [Staff Provider] - Disposition: HOME/ ROUTINE Disposition Time: 17:53 Condition: STABLE Additional Instructions: Alternate Tylenol and mortin as needed for fever Rest and Hydration Follow up with Dr. Delacruz Return to the ED if symptoms worsen Prescriptions: Acetaminophen [Tylenol] 325 mg PO Q6 PRN #30 capsule PRN Reason: Fever >100.4 F Ibuprofen [Motrin] 600 mg PO Q8 PRN #30 tab PRN Reason: Fever >100.4 F Instructions: Viral Syndrome (DC), When to Worry About a Fever Forms: [employer] (Trinidadian), [employer] (Bulgarian) Print Language: FIJIAN - Clinical Impression Clinical Impression: Fever, Viral syndrome - PA / VP [employer]IA / Resident Statement MD/DO has reviewed & agrees with the documentation as recorded. - Scribe Statement The provider has reviewed the documentation as recorded by the Scribe (Karyna Dozier) All medical record entries made by the Scribe were at my direction and personally dictated by me. I have reviewed the chart and agree that the record accurately reflects my personal performance of the history, physical exam, medical decision making, and the department course for this patient. I have also personally directed, reviewed, and agree with the discharge instructions and disposition.
[2018-07-12 17:20] LABS: BASO # 0.1 K/uL (0.0-0.2); BASO % 0.8 % (0.0-2.0); EOS # 0.2 K/uL (0.0-0.7); EOS % 2.5 % (0.0-4.0); HEMOGLOBIN 8.8 g/dL (11.0-16.0); LYMPH # 1.8 K/uL (1.0-4.3); LYMPH % 18.2 % (20.0-40.0); MEAN CELL VOLUME 65.3 fL (81.0-99.0); MEAN CORPUSCULAR HEMOGLOBIN 20.7 pg (27.0-31.0); MEAN CORPUSCULAR HGB CONC 31.6 g/dL (33.0-37.0); MONO # 0.6 K/uL (0.0-0.8); MONO % 6.2 % (0.0-10.0); NEUT # 7.1 K/uL (1.8-7.0); NEUT % 72.3 % (50.0-75.0); RBC 4.26 Mil/uL (3.80-5.20); RED CELL DISTRIBUTION WIDTH 22.9 % (11.5-14.5); WHITE BLOOD COUNT 9.8 K/uL (4.8-10.8)
[2018-07-12 17:52] LABS: ALB/GLOB RATIO 1.2 (1.0-2.1); ALBUMIN 4.2 g/dL (3.5-5.0); ALT/SGPT 18 U/L (9-52); AST/SGOT 23 U/L (14-36); BLOOD UREA NITROGEN 9 mg/dL (7-17); CALCIUM 9.3 mg/dl (8.6-10.4); GFR NON-AFRICAN AMERICAN > 60
== END 2018-07-12 18:02 | disposition home or self-care (01) ==
LOC: C.ER 16:13
DX: B34.9 Viral infection, unspecified (principal); R50.9 Fever, unspecified